=== PATIENT | female | born 1955 | race Caucasian/White ===

== ENCOUNTER → 2021-09-11 11:28 | Outpatient (CLI) | payer MEDICARE, BC, SELFPAY ==
--- NOTE | 2021-09-11 11:39 | DI.RAD.S_ITS ---
PROCEDURE: XR CHEST 2V INDICATIONS: COUGH/WHEEZING., TECHNIQUE: 2 views of the chest were acquired. COMPARISON: None. FINDINGS: Surgical changes and devices: None. Lungs and pleura: Lungs are clear. No pleural effusions or pneumothorax. Mediastinum: Mediastinal contours are normal. Heart size is normal. Bones and chest wall: No suspicious bony abnormalities. Soft tissues appear unremarkable. IMPRESSION: No source for cough identified radiographically. Dictated by: Reyes Ocampo RR Interpreted: Kenyatta Hobbs MD on 09/11/2021 at 12:06 Transcribed by: CAROL on 09/11/2021 at 12:08 Approved by: Kenyatta Hobbs M.D. on 09/11/2021 at 16:08
== END ==
PROVIDERS: PCP Physician Assistant; Referring Provider Physician Assistant; Visit Provider Physician Assistant
DX: R05.1 Acute cough (principal); R06.2 Wheezing; Z20.822 Contact with and (suspected) exposure to COVID-19
CPT/HCPCS: 71046; 87635

== ENCOUNTER → 2021-09-11 13:07 | Outpatient (ROUT) | payer MEDICARE, BC, SELFPAY ==
[2021-09-11 13:36] LABS: COVID19 -Nasal RAPID Negative (Negative)
== END ==
PROVIDERS: PCP Physician Assistant; Visit Provider Physician Assistant
DX: Z20.822 Contact with and (suspected) exposure to COVID-19 (principal)
CPT/HCPCS: 87635

== ENCOUNTER → 2022-02-20 09:48 | Outpatient (CLI) | payer MEDICARE, BC, SELFPAY ==
--- NOTE | 2022-02-20 | DI.RAD.S_ITS ---
PROCEDURE: XR HIP W PEL IF DONE LT 2V INDICATIONS: HIP PAIN LEFT TECHNIQUE: AP pelvis with lateral view(s) of the left hip(s). COMPARISON: None. FINDINGS: Bones: No acute fractures or dislocations. Pelvic ring appears intact. No suspicious bony lesions. Mild left hip joint space narrowing and spurring. Similar findings also likely present at the right hip. Soft tissues: The visualized bowel gas pattern is normal. No suspicious soft tissue calcifications. IMPRESSION: 1. Mild left hip DJD. 2. Mild right hip DJD likely also present on the single view of the right hip. Dictated by: Roger Perez M.D. on 02/20/2022 at 20:20 Approved by: Roger Perez M.D. on 02/20/2022 at 20:22
== END ==
PROVIDERS: PCP Physician Assistant; Referring Provider Physician Assistant; Visit Provider Physician Assistant
DX: M25.552 Pain in left hip (principal); M16.12 Unilateral primary osteoarthritis, left hip
CPT/HCPCS: 73502

== ENCOUNTER → 2022-02-27 16:36 | Outpatient (CLI) | payer MEDICARE, BC, SELFPAY ==
--- NOTE | 2022-02-27 | DI.MRI.S_ITS ---
PROCEDURE: MR HIP LT WO CON INDICATIONS: pain in left hip TECHNIQUE: Noncontrast coronal T1 spin echo and STIR through the bony pelvis. Coronal and axial T2 fast spin echo with fat saturation, sagittal T1 spin echo, and oblique axial T2 fast spin echo with fat saturation through the hip. COMPARISON: [facility], CR, XR HIP W PEL IF DONE LT 2V, 02/20/2022, 9:41. FINDINGS: Image quality: Partially degraded by motion artifact. Bones and joints: Mild periarticular osteophyte formation at the bilateral hip joints. Bone marrow of the pelvic ring and proximal femurs show normal signal throughout. No intraosseous lesions or fractures. No avascular necrosis of the femoral heads. The visualized lower lumbar spine appears normally aligned. Tendons and ligaments: The gluteus medius and minimus tendons appear intact, without associated muscle atrophy. Mild T2 signal elevation at the femoral origins of the bilateral gluteus medius and minimus tendons. The nearby proximal iliotibial band also appears intact. The iliopsoas tendon appears intact, without adjacent bursal fluid collections or evidence for impingement syndrome. The origin of the hamstring tendon is intact at the ischial tuberosity, as well as the associated sacrotuberous ligament. Moderate fluid surrounds the origin of the hamstring tendon at the ischial tuberosity. The straight and reflected heads of the rectus femoris muscle origin appear intact, as well as the conjoint tendon. The ligamentum teres appears intact where visualized. Labrum and cartilage: Degenerative tearing of the bilateral hip labral. Cartilage surface of the femoral head appears of normal thickness. The alpha angle of the femur is within normal limits at less than 55 degrees. Soft tissues: Visualized muscles demonstrate normal bulk and internal signal. Quadratus femoris muscle demonstrates no internal edema to suggest ischiofemoral impingement. The proximal sciatic neurovascular bundle appears normal adjacent to the hamstring tendons. No free pelvic fluid. Bladder wall thickness is normal. Genitourinary structures and bowel loops appear normal where visualized. IMPRESSION: 1. 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 2. Left ischiitis. 3. Insertional tendinitis of the bilateral gluteus medius and minimus tendons. Dictated by: Meg Oakes M.D. on 02/28/2022 at 8:42 Approved by: Meg Oakes M.D. on 02/28/2022 at 8:44
== END ==
PROVIDERS: PCP Physician Assistant; Referring Provider Physician Assistant; Visit Provider Physician Assistant
DX: M25.552 Pain in left hip (principal); M16.0 Bilateral primary osteoarthritis of hip; S73.102A Unspecified sprain of left hip, initial encounter; M76.02 Gluteal tendinitis, left hip; M76.01 Gluteal tendinitis, right hip
CPT/HCPCS: 73721

== ENCOUNTER → 2022-03-04 12:59 | Outpatient (CLI) | payer MEDICARE, BC, SELFPAY ==
--- NOTE | 2022-03-04 | DI.MRI.S_ITS ---
BREAST MRI OF BOTH BREASTS: 03/04/2022 CLINICAL: Family history of carrier of genetic disease. PROCEDURE: MR BREAST BI WO/W CON INDICATIONS: Family history of carrier of genetic disease TECHNIQUE: The patient was placed prone in a dedicated breast imaging coil. Precontrast axial STIR and 3D FLASH without fat saturation sequences were obtained. Both before and after bolus injection of contrast, sequential 1-minute axial 3D FLASH with fat saturation sequences for 3 time points, with subtraction images and maximum intensity projections (MIP's) generated. Delayed sagittal FLASH images with fat saturation were also obtained. Computer-aided detection, including computer algorithm analysis of MRI image data for lesion detection and characterization, pharmacokinetic analysis, with further physician review for interpretation, was performed. COMPARISON: None. FINDINGS: Image quality: Excellent. There is minimal background parenchymal enhancement. Right breast: The right breast demonstrates a 1.7 x 2.4 x 0.7 centimeter area of abnormal signal in the 3 o'clock position 4 cm from the nipple. This masslike area demonstrates no enhancement and on axial STIR images a blood vessel courses through the mass with no disruption. There is no post gadolinium enhancement and it follows the fibrous tissue in the breast on all sequences. Dynamic postcontrast images also shows no enhancement. No other focus, mass, or abnormal enhancement. No axillary or internal mammary chain adenopathy. Left breast: The left breast demonstrates no abnormal focus, mass, or abnormal enhancement. No axillary or internal mammary chain adenopathy. IMPRESSION: INCOMPLETE: NEEDS ADDITIONAL IMAGING EVALUATION Probable right benign fibroadenoma or other fibrous lesion. Recommend diagnostic mammogram and ultrasound of the right breast to further assess and for baseline imaging. This exam was interpreted at Station ID: [id number]. Electronically Signed By: Rolando Major acr/:03/06/2022 09:49:21 letter sent: Additional Imaging Needed ACR BI-RADS Category 0: Incomplete [id number]
== END ==
PROVIDERS: PCP Internal Medicine; Referring Provider Physician Assistant; Visit Provider Physician Assistant
DX: Z84.81 Family history of carrier of genetic disease (principal); Z12.39 Encounter for other screening for malignant neoplasm of breast; N63.15 Unspecified lump in the right breast, overlapping quadrants
CPT/HCPCS: 77049; A9579

== ENCOUNTER → 2022-04-15 09:35 | Outpatient (CLI) | payer MEDICARE, BC, SELFPAY ==
--- NOTE | 2022-04-15 09:37 | DI.MG.S_ITS ---
BILATERAL DIGITAL DIAGNOSTIC MAMMOGRAM 3D/2D SHORT-TERM FOLLOW-UP: 04/15/2022 CLINICAL: Breast MRI follow up. Comparison is made to exams dated: 03/04/2022 breast MRI - [facility], 11/22/2020 mammogram, 10/12/2020 CT - [facility], and 06/24/2016 mammogram - [facility]. There are scattered fibroglandular elements in both breasts. Focal asymmetry in the central right breast corresponding to the MRI finding. No other significant masses, calcifications, or other findings are seen in either breast. IMPRESSION: INCOMPLETE: NEEDS ADDITIONAL IMAGING EVALUATION Right breast asymmetry corresponding to the MRI abnormality, potentially a fibroadenoma or prominent fibroglandular tissue. Ultrasound recommended and has been scheduled to follow. Based on Tyrer-Cuzick model (a risk assessment model), the patient's lifetime risk is 20.5% and her 10 year risk is 10.6%. If a patient has an elevated risk, a more comprehensive evaluation should be considered and/or a referral to a genetic counselor. The [place] [employer], [employer], and NCCN Guidelines advise the consideration of Breast MRI as an adjunct to screening mammography in patients whose Lifetime risk to develop breast cancer is 20% or higher. This exam was interpreted at Station ID: [id number]. NOTE: For mammograms, a report in lay terms will be sent to the patient. Approximately 15% of breast malignancies will not be visualized mammographically. In the management of a palpable breast mass, a negative mammogram must not discourage biopsy of a clinically suspicious lesion. Electronically Signed By: Harman Montgomery M.D. jr/:04/15/2022 10:04:37 ACR BI-RADS Category 0: Incomplete [id number]
--- NOTE | 2022-04-15 09:37 | DI.US.S_ITS ---
LIMITED ULTRASOUND OF RIGHT BREAST AND AXILLA: 04/15/2022 CLINICAL: Patient returns today to evaluate a focal asymmetry in the right breast. No prior exams were available for comparison. Color flow and real-time ultrasound of the right breast 2-4 o'clock, and axilla regions were performed. Patel scale images of the real-time examination were reviewed. No suspicious abnormality seen sonographically in the right breast. Dense tissue corresponding to the MRI and mammographic finding at the 3:00 position is benign. IMPRESSION: NEGATIVE There is no sonographic evidence of malignancy. A 1 year screening mammogram is recommended. This exam was interpreted at Station ID: [id number]. Electronically Signed By: Harman Montgomery M.D. jr/:04/15/2022 10:29:13 letter sent: Normal Exam Ultrasound BI-RADS: 1 Negative
== END ==
PROVIDERS: PCP Internal Medicine; Referring Provider Internal Medicine; Visit Provider Internal Medicine
DX: R92.8 Other abnormal and inconclusive findings on diagnostic imaging of breast (principal); N64.89 Other specified disorders of breast
CPT/HCPCS: 76642; 77066; G0279

== ENCOUNTER → 2022-04-27 08:21 | Outpatient (CLI) | payer MEDICARE, BC, SELFPAY ==
[2022-04-27 08:51] LABS: Hematocrit 41.4 % (36-46); Hemoglobin 14.1 g/dL (12.0-16.0); Mean Corpuscular HGB Conc 34.1 % (30-36); Mean Corpuscular Hemoglobin 30.2 PG (26-34); Mean Corpuscular Volume 88.5 fL (80-100); Platelet Count 177 X10^3/uL (150-400); Red Blood Cell Count 4.68 X10^6/uL (4.0-5.2); White Blood Cell Count 6.8 X10^3/uL (4.5-11.0)
[2022-04-27 08:52] LABS: Appearance Urine UA CLEAR; Bilirubin Urine UA NEGATIVE (NEGATIVE); Color Urine UA YELLOW; Glucose Urine UA NEGATIVE (Negative); Ketones Urine UA NEGATIVE (NEGATIVE); Leukocyte Esterase Urine UA NEGATIVE (NEGATIVE); Nitrite Urine UA NEGATIVE (Negative); Occult Blood Urine UA 1+ (Negative); Protein Urine UA 1+ (Negative); Specific Gravity Urine UA 1.025 (1.000-1.035); Urobilinogen Urine UA 0.2 E.U./dL (0.2)
[2022-04-27 09:03] LABS: Alanine Aminotransferase 32 IU/L (<35); Albumin 3.8 g/dL (3.5-5.0); Albumin Globulin Ratio 1.3 (1.0-2.8); Alkaline Phosphatase 71 U/L (38-126); Aspartate Aminotransferase 23 IU/L (14-36); Bilirubin Total 0.6 mg/dL (0.2-1.3); Blood Urea Nitrogen 24 mg/dL (7-17); Calcium 9.2 mg/dL (8.4-10.2); Carbon Dioxide 30 mmol/L (22-32); Chloride 105 mmol/L (98-107); Cholesterol 217 mg/dL (140-199); Estimated Glomerular Filt Rate > 60 mL/min (>60); Globulin 2.9 g/dL (1.7-4.1); Glucose 118 mg/dL (80-110); HDL Cholesterol 35 mg/dL (40-60); HEMOLYSIS < 15 (0-50); LDL Cholesterol Calculated 160 mg/dL (<100); Potassium 4.2 mmol/L (3.4-5.1); Sodium 139 mmol/L (137-145); Total Protein 6.7 g/dL (6.3-8.2); Triglycerides 108 mg/dL (35-150)
[2022-04-27 09:03] LABS: Amorphous Sediment Urine 1+; Bacteria Urine Few (2-10); Culture Indicated Urine Cult Not Indicated; Mucus Urine 2+ (Negative); RBC Urine 0-1/HPF (0-5/HPF); Squamous Epithelial Cell Urine 5-10 /HPF (0-5/HPF); WBC Urine 1-5/HPF (0-5/HPF)
[2022-04-27 09:33] LABS: TSH w/ Reflex to FT4 1.47 uIU/mL (0.47-4.68)
== END ==
PROVIDERS: PCP Family Medicine; Referring Provider Internal Medicine; Visit Provider Internal Medicine
DX: R32 Unspecified urinary incontinence (principal); N95.1 Menopausal and female climacteric states; E03.9 Hypothyroidism, unspecified; E78.2 Mixed hyperlipidemia
CPT/HCPCS: 36415; 80053; 80061; 81001; 84443; 85027

== ENCOUNTER → 2022-05-14 15:46 | Outpatient (CLI) | payer MEDICARE, BC, SELFPAY ==
--- NOTE | 2022-05-14 15:50 | DI.MRI.S_ITS ---
PROCEDURE: MR LUMBAR SPINE WO CON INDICATIONS: Low back pain, lumbar DDD/DJD TECHNIQUE: Noncontrast sagittal T1 spin echo and T2 fast echo, sagittal STIR, and T2 fast spin echo through the lumbar spine. In cases with scoliosis, additional coronal T2 fast spin echo may be performed. COMPARISON: None. FINDINGS: Image quality: Excellent. Alignment and Curvature: There is 3 mm retrolisthesis of L3 on L4. There is leftward curvature of the lower thoracic spine with apex at T11-12. Bone Marrow: Marrow is of normal overall signal. No acute vertebral body compression fractures. Spinal Cord: Conus medullaris terminates at the L2 level. Visualized cord demonstrates normal signal and size. Paraspinous Soft Tissues: No paravertebral masses. Increased T2 signal is present within the left kidney suggestive of simple cyst. There is an oval T2 hyperintensity measuring 1.1 x 2.5 cm posterior to the right hemidiaphragm at the level of T12. Discs: Moderate to severe desiccation is present throughout the lumbar spine. L1-L2: Mild disc bulge without spinal stenosis. No foraminal narrowing. Facet and ligamentum flavum hypertrophy are present. L2-L3: Mild disc bulge with prominent left posterior paracentral protrusion. There is mild compromise of the left lateral recess. No foraminal narrowing. Facet and ligamentum flavum hypertrophy are present. L3-L4: Mild disc bulge with minimal spinal stenosis. Mild left foraminal narrowing with facet and ligamentum flavum hypertrophy. L4-L5: Mild disc bulge without spinal stenosis. Moderate to severe right foraminal narrowing with facet and ligamentum flavum hypertrophy. L5-S1: Mild disc bulge without spinal stenosis. Mild narrowing through the subarticular recess on the left with facet and ligamentum flavum hypertrophy. IMPRESSION: Multilevel disc bulges with prominent protrusion at L2-3. Multilevel foraminal narrowing moderate to severe at L4-5 secondary to facet/ligamentum flavum arthropathy. Limited evaluation of T2 hyperintensity posterior to the right hemidiaphragm. This may represent a cystic fluid collection of uncertain etiology. CT abdomen with contrast through this region is recommended for further evaluation. Dictated by: Kenyatta Hobbs M.D. on 05/14/2022 at 21:30 Approved by: Kenyatta Hobbs M.D. on 05/14/2022 at 21:36
== END ==
PROVIDERS: PCP Family Medicine; Referring Provider Internal Medicine; Visit Provider Internal Medicine
DX: M48.061 Spinal stenosis, lumbar region without neurogenic claudication (principal); M51.36 Other intervertebral disc degeneration, lumbar region; G89.29 Other chronic pain
CPT/HCPCS: 72148

== ENCOUNTER → 2022-05-17 15:00 | Outpatient (CLI) | payer MEDICARE, BC, SELFPAY ==
--- NOTE | 2022-05-17 15:01 | DI.ECHO.S_ITS ---
[facility] +---------+ : : [address] : [place] : : : : [id number] : : : : Phone: [phone]+ Echocardiogram Report + + :Name: DIEGO WALTON Study Date: 05/17/2022 Height: 65 in : :[facility] ReadingLocation: Weight: 212 lb : : Gender: Female BSA: 2.0 m2 : :: 1955 Age: 66 yrs BP: 151/95 mmHg: :Reason For Study: SVT : :Ordering Physician: ABAD, : :JESSICA Performed By: Phuc Fajardo : :Referring: JESSICA MELGOZA : + + Interpretation Summary The patient was in normal sinus rhythm during the exam. The left ventricle is normal in size. There is moderate concentric left ventricular hypertrophy. The left ventricle is hyperdynamic. The ejection fraction is estimated to be 70-75%. There are no focal wall motion abnormalities. Indeterminate diastolic function No prior study for comparison. Procedure: A two-dimensional transthoracic echocardiogram with color flow and Doppler was performed. The study quality was technically difficult. There is no prior echocardiogram noted for this patient. The patient was in normal sinus rhythm during the exam. Left Ventricle: The left ventricle is normal in size. There is moderate concentric left ventricular hypertrophy. The left ventricle is hyperdynamic. The ejection fraction is estimated to be 70-75%. There are no focal wall motion abnormalities. Indeterminate diastolic function. Right Ventricle: The right ventricle is normal in size and function. Atria: The left atrium grossly appears normal in size. The right atrium grossly appears normal in size. The interatrial septum grossly appears intact with no obvious evidence for an atrial septal defect. Mitral Valve: The mitral valve is normal in structure and function. There is no mitral regurgitation noted. Aortic Valve: The aortic valve is normal in structure and function. There is trace aortic regurgitation. Tricuspid Valve: The tricuspid valve is normal in structure and function. No tricuspid regurgitation. Pulmonary artery pressures cannot be estimated because of the lack of a measurable TR jet velocity. Pulmonic Valve: The pulmonic valve is not well seen, but is grossly normal. Great Vessels: The aortic root is normal size. The ascending aorta is normal in size. The IVC is of normal diameter and collapses greater than 50% with a sniff. This suggests a low right atrial pressure of 3 mm Hg. Pericardium/ Pleura There is no pericardial effusion. There is no pleural effusion. MMode/2D Measurements & Calculations LVIDd: 3.9 cm LVOT diam: 2.1 cm LVIDs: 1.7 cm Ao root diam: 3.6 cm FS: 56.4 % asc Aorta Diam: 3.7 cm IVSd: 1.4 cm LVPWd: 1.3 cm LV cruz. diameter/BSA (cm/m^2): 1.9 LV sys. diameter/BSA (cm/m^2): 0.84 LA dimension: 3.4 cm RA long axis: 5.5 cm LA A2 area: 17.3 cm2 LA A4 area: 16.4 cm2 LA length (vol): 5.5 cm LA vol: 44.1 ml LA vol index: 21.8 ml/m2 TAPSE_phl: 2.6 cm Doppler Measurements & Calculations Ao V2 max: 135.0 cm/sec LVOT Max Jakob: 128.0 cm/sec Ao V2 mean: 94.0 cm/sec LV V1 max P.6 mmHg Ao max P.0 mmHg LV V1 VTI: 23.9 cm Ao mean P.0 mmHg GIOVANNY(I,D): 3.7 cm2 Ao V2 VTI: 22.1 cm GIOVANNY(V,D): 3.3 cm2 sev ratio: 1.1 GIOVANNY indexed to BSA (cm^2/m^2): 1.8 MV E max jakob: 72.0 cm/sec SV(LVOT): 82.8 ml MV A max jakob: 79.3 cm/sec MV E/A: 0.91 Med Peak E' Jakob: 4.6 cm/sec E/E' med: 15.5 Lat Peak E' Jakob: 3.9 cm/sec E/E' lat: 18.6 E/e' average: 17.1 MV dec time: 0.21 sec AV VR_phl: 0.95 MV P1/2t-pr_phl: 61.0 msec GIOVANNY(VTI)/BSA_phl: 1.8 Reading Physician:JIMENA
== END ==
PROVIDERS: PCP Family Medicine; Referring Provider Internal Medicine; Visit Provider Internal Medicine
DX: I47.1 Supraventricular tachycardia (principal); I51.7 Cardiomegaly
CPT/HCPCS: C8929; Q9957

== ENCOUNTER → 2022-08-16 22:01 | Outpatient (CLI) | payer MEDICARE, BC, SELFPAY ==
--- NOTE | 2022-08-16 22:03 | DI.RAD.S_ITS ---
PROCEDURE: XR LUMBAR SPINE MIN 4V INDICATIONS: BACK PAIN TECHNIQUE: 5 views of the lumbar spine were acquired, including bilateral oblique views. COMPARISON: None. FINDINGS: Bones: 5 nonrib-bearing vertebrae are present. There is a mild leftward curvature of the thoracic spine centered at T11-T12. There is minimal anterolisthesis at L5-S1. No vertebral body compression fractures. No suspicious bony lesions. There is multilevel moderate degenerative disc disease throughout the lumbar spine. Moderate facet arthropathy also demonstrated in the lower lumbar spine. Soft tissues: Overlying bowel gas pattern is normal. No suspicious soft tissue calcifications. Oblique images: No pars defects. IMPRESSION: 1. No fracture or subluxation. 2. Moderate facet arthropathy in the lower lumbar spine. 3. Moderate multilevel degenerative disc disease throughout the lumbar spine. 4. Minimal anterolisthesis at L5-S1. No definite pars defects. Dictated by: Martinez Rooney M.D. on 08/17/2022 at 2:45 Approved by: Martinez Rooney M.D. on 08/17/2022 at 2:47
== END ==
PROVIDERS: PCP Family Medicine; Referring Provider Physical Medicine & Rehabilitation; Visit Provider Physical Medicine & Rehabilitation
DX: M47.816 Spondylosis without myelopathy or radiculopathy, lumbar region (principal); M51.36 Other intervertebral disc degeneration, lumbar region; M54.9 Dorsalgia, unspecified
CPT/HCPCS: 72110

== ENCOUNTER → 2022-08-19 09:16 | Outpatient (CLI) | payer MEDICARE, BC, SELFPAY ==
--- NOTE | 2022-08-19 09:21 | DI.RAD.S_ITS ---
PROCEDURE: XR THORACIC SPINE 3V INDICATIONS: Scoliosis TECHNIQUE: 3 views of the thoracic spine were acquired. COMPARISON: None. FINDINGS: Bones: No acute fracture or dislocation. There is 30.5? left convex scoliosis centered at T11. Anterior wedging is present within the midthoracic spine. Severe degenerative changes are present including large osteophytes and marked intervertebral disc space narrowing. Soft tissues: No paravertebral stripe thickening. IMPRESSION: Severe degenerative change and scoliotic deformity of the thoracic spine. Dictated by: Rand Raman M.D. on 08/19/2022 at 14:13 Approved by: Rand Raman M.D. on 08/19/2022 at 14:20
== END ==
PROVIDERS: PCP Family Medicine; Referring Provider Physical Medicine & Rehabilitation; Visit Provider Physical Medicine & Rehabilitation
DX: M47.814 Spondylosis without myelopathy or radiculopathy, thoracic region (principal); I47.1 Supraventricular tachycardia; M51.26 Other intervertebral disc displacement, lumbar region; M48.062 Spinal stenosis, lumbar region with neurogenic claudication; M41.20 Other idiopathic scoliosis, site unspecified
CPT/HCPCS: 72072; 99214

== ENCOUNTER 2022-09-12 09:05 | Outpatient (CLI) | payer MEDICARE, BC, SELFPAY ==
[2022-09-12] VITALS (8 sets, daily range): BP systolic 99–144; BP diastolic 63–86; PULSE 80–102; RESP 12–20; TEMP 36.1; O2SAT 93–100
--- NOTE | 2022-09-12 09:07 | DI.RAD.S_ITS ---
PROCEDURE: PAIN L INTERLAMINAR/CAUDAL INJ INDICATIONS: L2-3 translaminar VALERIE COMPARISON: [facility], CR, XR LUMBAR SPINE MIN 4V, 08/16/2022, 22:06. FINDINGS: Fluoroscopic spot filming was performed to verify placement of a spinal needle at the L2-L3 level, as labeled on the films. Appropriate location of the needle tip was confirmed by injection of iodinated contrast. IMPRESSION: Intraprocedural examination within normal limits. Dictated by: Mendoza Anaya M.D. on 09/12/2022 at 10:39 Approved by: Mendoza Anaya M.D. on 09/12/2022 at 10:39
[2022-09-12] MEDS: MIDAZOLAM 2 MG/2 ML VIAL IV (10:11)
[2022-09-12] MEDS: IOPAMIDOL 15 ML VIAL 3 ML INJ (10:16)
[2022-09-12] MEDS: DEXAMETHASONE 10 MG/ML VIAL 20 MG INJ (10:17)
[2022-09-12] MEDS: BETAMETHASONE 30 MG/5 ML MDV 6 MG INJ (10:17)
[2022-09-12] MEDS: BUPIVACAINE 0.25% (PF) VIAL 2 ML INJ (10:17)
--- NOTE | 2022-09-12 10:26 | PM.PROC.IR.1 ---
Date/Time/Diagnoses Date of procedure: 09/12/22 Time of procedure: 10:26 Pre-procedure diagnosis: 1. HNP WITH RADICULAR FEATURES, 2. MULTILEVEL CENTRAL STENOSIS, Post-procedure diagnosis: same Procedure Notes Procedure: 1. FLUOROSCOPICALLY GUIDED CONTRAST CONTROLLED INTERLAMINAR EPIDURAL STEROID INJECTION - L2/3 Indications: Sheyla is referred by Dr. Rueda for treatment of Bilateral Foraminal Stenosis L>R LE symptoms. Physician: José Miguel Rodriguez Total Fluoroscopy time (seconds): 15 Total sedation minutes: 15 Complications: none Procedure in detail & Post-procedure care: FINDINGS Multilevel Central Spinal Stenosis with Nerve Root Compression DESCRIPTION OF PROCEDURE Fluoroscopically guided, contrast-controlled L2/3 translaminar epidural steroid injection. Following review of allergy and review of potential side effects and complications, including, but not necessarily limited to, infection, allergic reaction, local tissue breakdown, temporary as well as permanent nerve injury, paralysis, stroke and possible , the patient indicated that the patient understood and agreed to proceed. An informed consent document was signed by the patient, witnessed by a nurse, and placed in the patient's chart. Additionally, other treatment options including modalities, medications, and physical therapy were reviewed with the patient. After review of previous anaesthesic history and IV conscious sedation the patient was deemed safe to proceed with today?s procedure with IV conscious sedation as ASA class II designation. Safety time-out was performed to confirm patient ID, procedure to be performed and site of procedure. IV sedation was accomplished with a combination of 2mg Versed administered by the RN after DO order, titrated to patient comfort during the course of the procedure while the patient remained responsive to all verbal commands. In the prone position, following sterile prep and drape of the lumbar region,the L2/3 translaminar space was identified fluoroscopically. The skin was anesthetized via a 25-gauge, 1.5-inch needle with 1% lidocaine solution. At this point, a 22-gauge short bevel spinal needle was atraumatically introduced and advanced under fluoroscopic guidance into the region of the L2/3 translaminar space. Depth was confirmed on lateral view. Radiological data, including multiple fluoroscopic views of the lumbar spine, reveal a spinal needle at the L2/3 translaminar space. Lateral views then show placement of the needle in the epidural space. Subsequent views show contrast material flowing superiorly and inferiorly in the epidural space. No vascular or intrathecal uptake is observed. At this point, using loss of resistance technique with saline and air, the epidural space was entered. This was confirmed following negative aspiration with injection of approximately 1.5 cc of Isovue 200, showing excellent epidural flow without vascular or intrathecal uptake. At this point, 1 cc of 1% lidocaine solution combined with 3cc or 20mg of dexamethasone and 6mg of betamethasone was injected without incident. The patient tolerated the procedure well without signs or symptoms of complications prior to transfer to the recovery area continued monitoring without incident. The patient was then transferred to the recovery area where they were observed for an appropriate period of time after the injection. The patient reported a VAS score of 6 prior to the procedure and a post-procedure VAS of 0. POST OP INSTRUCTIONS The patient was provided a Pain Log to continue to record their response to the target-specific procedure prior to follow-up visit with their referring physician. Additionally, specific post-injection care instructions and a contact number to our office were provided if concerns arise regarding possible complications associated with the procedure are suspected.
== END 2022-09-12 10:46 | disposition home or self-care (01) ==
PROVIDERS: PCP Family Medicine; Referring Provider Physical Medicine & Rehabilitation; Visit Provider Physical Medicine & Rehabilitation
DX: M51.16 Intervertebral disc disorders with radiculopathy, lumbar region (principal); M48.061 Spinal stenosis, lumbar region without neurogenic claudication
CPT/HCPCS: 62323; 99152; J0702; J1100; J2250; J3490

== ENCOUNTER → 2022-09-24 10:39 | Outpatient (CLI) | payer MEDICARE, BC, SELFPAY ==
[2022-09-24 12:28] LABS: Blood Urea Nitrogen 22 mg/dL (7-17); Calcium 9.4 mg/dL (8.4-10.2); Carbon Dioxide 25 mmol/L (22-32); Chloride 102 mmol/L (98-107); Estimated Glomerular Filt Rate 59 mL/min (>60); Glucose 97 mg/dL (80-110); HEMOLYSIS < 15 (0-50); Potassium 4.5 mmol/L (3.4-5.1); Sodium 135 mmol/L (137-145)
[2022-09-24 12:41] LABS: Free T3, Triiodothyronine Free 6.23 pg/mL (2.77-5.27); Free T4, Direct Thyroxine 0.91 ng/dL (0.78-2.19)
[2022-09-24 12:55] LABS: TSH w/ Reflex to FT4 0.95 uIU/mL (0.47-4.68)
== END ==
PROVIDERS: PCP Family Medicine; Referring Provider Physical Medicine & Rehabilitation; Visit Provider Physical Medicine & Rehabilitation
DX: E03.9 Hypothyroidism, unspecified (principal); I10 Essential (primary) hypertension; M54.6 Pain in thoracic spine
CPT/HCPCS: 36415; 80048; 84439; 84443; 84481

== ENCOUNTER → 2022-10-31 10:20 | Outpatient (CLI) | payer MEDICARE, BC, SELFPAY ==
[2022-10-31 11:38] LABS: Free T3, Triiodothyronine Free 6.34 pg/mL (2.77-5.27); Free T4, Direct Thyroxine 0.87 ng/dL (0.78-2.19)
[2022-10-31 11:45] LABS: Alanine Aminotransferase 24 IU/L (<35); Albumin 3.7 g/dL (3.5-5.0); Albumin Globulin Ratio 1.4 (1.0-2.8); Alkaline Phosphatase 64 U/L (38-126); Aspartate Aminotransferase 22 IU/L (14-36); BUN Creatinine Ratio 24.5 (6-22); Bilirubin Total 0.8 mg/dL (0.2-1.3); Blood Urea Nitrogen 26 mg/dL (7-17); Calcium 9.5 mg/dL (8.4-10.2); Carbon Dioxide 28 mmol/L (22-32); Chloride 103 mmol/L (98-107); Estimated Glomerular Filt Rate 58 mL/min (>60); Globulin 2.6 g/dL (1.7-4.1); Glucose 98 mg/dL (80-110); HEMOLYSIS < 15 (0-50); Potassium 4.3 mmol/L (3.4-5.1); Sodium 138 mmol/L (137-145); Total Protein 6.3 g/dL (6.3-8.2)
[2022-10-31 11:52] LABS: Thyroid Stimulating Hormone 0.205 uIU/mL (0.47-4.68)
[2022-10-31 12:04] LABS: Creatinine Urine Random 116.1 mg/dL
[2022-10-31 12:06] LABS: Protein (Total) Urine Random < 5 mg/dL (0-12); Protein Creatinine Ratio Urine 0.04 GRAM/24H
== END ==
PROVIDERS: PCP Family Medicine; Referring Provider Family Medicine; Visit Provider Family Medicine
DX: E03.9 Hypothyroidism, unspecified (principal); E78.2 Mixed hyperlipidemia; I10 Essential (primary) hypertension; M51.26 Other intervertebral disc displacement, lumbar region; M48.062 Spinal stenosis, lumbar region with neurogenic claudication; M41.20 Other idiopathic scoliosis, site unspecified; M15.9 Polyosteoarthritis, unspecified
CPT/HCPCS: 36415; 80053; 82570; 84156; 84439; 84443; 84481; 99215

== ENCOUNTER 2022-11-05 07:19 | Outpatient (CLI) | payer MEDICARE, BC, SELFPAY ==
[2022-11-05] VITALS (9 sets, daily range): BP systolic 126–156; BP diastolic 63–85; PULSE 88–93; RESP 16–22; TEMP 36.2; O2SAT 91–98
--- NOTE | 2022-11-05 07:23 | DI.RAD.S_ITS ---
PROCEDURE: PAIN L/S TRANSFORAM INJECT DORIAN COMPARISON: None. INDICATIONS: SPONDYLOSIS FINDINGS: 6 intraoperative fluoroscopic images of lumbar spine shows spinal needle placed bilaterally at L2-3 level. IMPRESSION: Fluoro guidance was provided intraoperatively for bilateral L2-3 transforaminal steroid injection performed by the ordering physician. Dictated by: Vamsi Mendoza M.D. on 11/05/2022 at 8:54 Approved by: Vamsi Mendoza M.D. on 11/05/2022 at 8:56
[2022-11-05] MEDS: MIDAZOLAM 2 MG/2 ML VIAL IV (08:16)
[2022-11-05] MEDS: BUPIVACAINE 0.25% (PF) VIAL 2 ML INJ (08:21)
[2022-11-05] MEDS: IOPAMIDOL 15 ML VIAL 3 ML INJ (08:21)
[2022-11-05] MEDS: DEXAMETHASONE 10 MG/ML VIAL 20 MG INJ (08:21)
[2022-11-05] MEDS: BETAMETHASONE 30 MG/5 ML MDV 12 MG INJ (08:22)
--- NOTE | 2022-11-05 08:39 | PM.PROC.IR.1 ---
Date/Time/Diagnoses Date of procedure: 11/05/22 Time of procedure: 08:39 Pre-procedure diagnosis: 1. FORAMINAL STENOSIS WITH LE SYMPTOMS Post-procedure diagnosis: same Procedure Notes Procedure: 1. FLUOROSCOPICALLY GUIDED CONTRAST CONTROLLED TRANSFORAMINAL EPIDURAL STEROID INJECTION - BILATERAL L2/3 TFESI Indications: Sheyla is referred by Dr. Rueda for treatment of Foraminal Stenosis with bilateral LE Symptoms Physician: José Miguel Rodriguez Total Fluoroscopy time (seconds): 19 Total sedation minutes: 17 Complications: none Procedure in detail & Post-procedure care: FINDINGS Foraminal Nerve Root Compression secondary to disc disease and facet hypertrophy DESCRIPTION OF PROCEDURE Following review of allergy and review of potential side effects and complications, including, but not necessarily limited to, infection, allergic reaction, local tissue breakdown, stroke, temporary or permanent nerve injury, paralysis, and possible , the patient indicated that the patient understood and agreed to proceed. An informed consent document was signed by the patient, witnessed by a nurse, and placed in the patient's chart. Additionally, other treatment options including medications, modalities, and physical therapy were reviewed with the patient. After review of previous anaesthesic history and IV conscious sedation the patient was deemed safe to proceed with today?s procedure with IV conscious sedation as ASA class II designation. Safety time-out was performed to confirm patient ID, procedure to be performed and site of procedure. IV sedation was accomplished with a combination of 2mg of Versed was administered by the RN after DO order, titrated to patient comfort during the course of the procedure while the patient remained responsive to all verbal commands In the prone position following sterile prep and drape of the lumbar region, the right L3/4 posterior neuroforamen was identified fluoroscopically. The skin was anesthetized via a 25-gauge 1.5-inch needle with 1% lidocaine solution. At this point, a 25-gauge 3.5-inch spinal needle was atraumatically introduced and advanced under fluoroscopic guidance through the posterior right L3/4 neuroforamen to approximately the anterior aspect of the canal. Depth was confirmed on lateral view. Following negative aspiration, injection of approximately 1.5cc of Isovue 200 under live fluoroscopy in the AP view confirmed excellent flow along the nerve root, into the epidural space without vascular or intrathecal uptake observed Radiological data, including multiple fluoroscopic views of the lumbosacral spine, reveal a spinal needle at the right L3/4 posterior neuroforamen. Subsequent views show flow of contrast material flowing superiorly and inferiorly along the nerve root confirming epidural flow. Subsequently, a test dose of 1.5cc of 1% lidocaine solution was administered and patient was observed for two minutes for signs or symptoms of complications, including abdominal pain, shortness of breath, bilateral upper or lower extremity weakness, nausea and vomiting, prior to steroid injection. At this point, a total of 3cc or 20mg of dexamethasone and 6mg betamethasone was injected without incident. Attention was then refocused to the left L3/4 level where the identical procedure was replicated. The procedure tolerated the procedure well without signs or symptoms of complications prior to transfer to the recovery area continued monitoring without incident. The patient was then transferred to the recovery area where they were observed for an appropriate time after the injection. The patient reported a VAS score of 7 prior to the procedure and a post-procedure VAS of 0. POST OP INSTRUCTIONS The patient was provided a Pain Log to continue to record their response to the target-specific procedure prior to follow-up visit with their referring physician. Additionally, specific post-injection care instructions and a contact number to our office were provided if concerns arise regarding possible complications associated with the procedure are suspected.
== END 2022-11-05 08:49 | disposition home or self-care (01) ==
LOC: RAD 07:21
PROVIDERS: PCP Family Medicine; Referring Provider Physical Medicine & Rehabilitation; Visit Provider Physical Medicine & Rehabilitation
DX: M48.062 Spinal stenosis, lumbar region with neurogenic claudication (principal); M51.16 Intervertebral disc disorders with radiculopathy, lumbar region
CPT/HCPCS: 64483; 99152; J0702; J1100; J2250; J3490

== ENCOUNTER → 2022-12-10 10:08 | Outpatient (CLI) | payer MEDICARE, BC, SELFPAY ==
[2022-12-10 10:30] LABS: BUN Creatinine Ratio 21.7 (6-22); Blood Urea Nitrogen 23 mg/dL (7-17); Calcium 9.2 mg/dL (8.4-10.2); Carbon Dioxide 26 mmol/L (22-32); Chloride 105 mmol/L (98-107); Estimated Glomerular Filt Rate 58 mL/min (>60); Glucose 109 mg/dL (80-110); HEMOLYSIS < 15 (0-50); Potassium 4.1 mmol/L (3.4-5.1); Sodium 139 mmol/L (137-145)
== END ==
PROVIDERS: PCP Family Medicine; Referring Provider Family Medicine; Visit Provider Family Medicine
DX: R06.02 Shortness of breath (principal); E78.2 Mixed hyperlipidemia; I10 Essential (primary) hypertension
CPT/HCPCS: 36415; 80048

== ENCOUNTER → 2022-12-10 10:16 | Outpatient (CLI) | payer MEDICARE, BC, SELFPAY ==
--- NOTE | 2022-12-10 10:17 | DI.US.S_ITS ---
PROCEDURE: US PERIPH VENOUS LOW EXTREM LT INDICATIONS: LEFT LEG PAIN/SWELLING TECHNIQUE: Real-time imaging, as well as color and pulse Doppler interrogation, were performed of the lower extremity deep veins from the inguinal ligament to the popliteal fossa. COMPARISON: None. FINDINGS: The common femoral, femoral and popliteal veins are normally compressible, and free of intraluminal thrombus. Color and pulse Doppler demonstrate normal phasic intraluminal flow. There is normal augmentation response to distal compression maneuver. IMPRESSION: Negative for DVT Dictated by: Randolph Ospina M.D. on 12/10/2022 at 10:49 Approved by: Randolph Ospina M.D. on 12/10/2022 at 10:50
--- NOTE | 2022-12-10 10:17 | DI.CT.S_ITS ---
PROCEDURE: CT ANGIO CHEST PE PROTOCOL INDICATIONS: SOB TECHNIQUE: After the administration of intravenous contrast, 2 mm thick sections acquired from the pulmonary apices to the posterior costophrenic angles. 3-dimensional maximum intensity projection (MIP) coronal and sagittal reformats were then acquired through the thorax. For radiation dose reduction, the following was used: automated exposure control, adjustment of mA and/or kV according to patient size. COMPARISON: [facility], MR, MR BREAST BI WO/W CON, 03/04/2022, 13:13. FINDINGS: Image quality: Excellent. Pulmonary arteries: Segmental and subsegmental pulmonary emboli bilaterally. Moderate embolic burden. RV to LV ratio 0.78. Lungs and pleura: Bilateral patchy ground-glass opacity, left greater than right. No pleural effusions or pneumothorax. Central and peripheral airways are patent. Mediastinum: Heart size is normal, without pericardial effusion. No mediastinal or hilar adenopathy. Thoracic aorta is normal in caliber and enhancement. Esophagus is normal in caliber, without hiatal hernia. Bones and chest wall: No suspicious bony lesions. Ribs and thoracic spine appear intact throughout. Thyroid gland is unremarkable. Density in the right medial breast, (4/61), appears unchanged compared to prior MRI. No axillary or supraclavicular adenopathy. Abdomen: Visualized upper abdominal solid organs appear normal in the early arterial phase of enhancement. IMPRESSION: 1. Bilateral segmental and subsegmental pulmonary emboli. Moderate embolic burden. No right heart strain demonstrated. 2. Bilateral ground-glass opacity. Favor atelectasis. Comment: Findings were discussed with Malka on behalf of Dr. Rueda at time of dictation. Dictated by: Rajat Bertrand M.D. on 12/10/2022 at 12:19 Approved by: Rajat Bertrand M.D. on 12/10/2022 at 12:33
== END ==
PROVIDERS: PCP Family Medicine; Referring Provider Family Medicine; Visit Provider Family Medicine
DX: R06.02 Shortness of breath (principal); M79.605 Pain in left leg; E78.2 Mixed hyperlipidemia; I10 Essential (primary) hypertension
CPT/HCPCS: 36415; 71275; 80048; 93971; Q9967

== ENCOUNTER → 2022-12-25 06:52 | Outpatient (CLI) | payer MEDICARE, BC, SELFPAY ==
--- NOTE | 2022-12-25 07:20 | DI.ECHO.S_ITS ---
[place] [facility]---------+ [facility] +---------+ : : [address] : : : : [id number] : : : : Phone: [phone]---------+ Echocardiogram Report + + :Name: DIEGO WALTON Study Date: 12/25/2022 Height: 65 in : :[facility] ReadingLocation: Weight: 220 lb: : Gender: Female BSA: 2.1 m2 : :: 1955 Age: 67 yrs BP: 95/67 mmHg: :Reason For Study: SHORTNESS OF BREATH WITH EXERTION : :Ordering Physician: NARESH YAÑEZ Performed By: Cassy Adams : :Referring: NARESH YAÑEZ : + + Interpretation Summary Left ventricular ejection fraction is estimated to be 60 +/- 5%. There is no significant valvular heart disease. Procedure: A two-dimensional transthoracic echocardiogram with color flow and Doppler was performed. The study quality was technically adequate. Comparison is made with the echocardiogram of 05/17/2022. The patient was in sinus rhythm with heart rates between 64-84 bpm during the exam. Left Ventricle: The left ventricle is normal in size. Left ventricular wall thickness is mild-moderately increased. Left ventricular ejection fraction is estimated to be 60 +/- 5%. Left ventricular wall motion is normal. Right Ventricle: The right ventricle is normal in size and function. Atria: The left atrial size is normal. Right atrial size is normal. There is no Doppler evidence for an interatrial shunt. Mitral Valve: The mitral valve is normal in structure and function. There is no mitral regurgitation noted. Aortic Valve: The aortic valve is normal in structure and function. There is no aortic valve stenosis. There is trace aortic regurgitation. Tricuspid Valve: The tricuspid valve is normal in structure and function. There is trace tricuspid regurgitation. Pulmonary artery pressures cannot be estimated because of the lack of a measurable TR jet velocity. Pulmonic Valve: The pulmonic valve leaflets are thin and pliable; valve motion is normal. There is mild pulmonic regurgitation. Great Vessels: The aortic root is normal size. The ascending aorta is at the upper limits of normal in size. The IVC is dilated (diameter is greater than 2.1 cm) yet it collapses greater than 50% with a sniff. This suggests a right atrial pressure of 8 mm Hg. Pericardium/ Pleura There is no pericardial effusion. There is no pleural effusion. MMode/2D Measurements & Calculations LVIDd: 4.9 cm LVOT diam: 2.0 cm LVIDs: 2.8 cm Ao root diam: 3.8 cm FS: 42.9 % asc Aorta Diam: 3.8 cm EPSS: 0.42 cm Ao Arch Diam (Prox Trans): 3.0 cm IVSd: 1.3 cm LVPWd: 0.97 cm LV cruz. diameter/BSA (cm/m^2): 2.4 LV sys. diameter/BSA (cm/m^2): 1.4 LA A2 area: 17.1 cm2 RA long axis: 4.8 cm LA A4 area: 15.9 cm2 RA area: 13.1 cm2 LA length (vol): 4.7 cm RA vol: 30.4 ml LA vol: 48.9 ml RA : 14.8 ml/m2 LA vol index: 23.7 ml/m2 IVC diam: 2.1 cm RVD1 (basal): 2.7 cm RVD2 (mid): 2.3 cm TAPSE: 1.8 cm Doppler Measurements & Calculations Ao V2 max: 139.7 cm/sec LVOT Max Jakob: 104.3 cm/sec Ao V2 mean: 97.6 cm/sec LV V1 max P.4 mmHg Ao max P.8 mmHg LV V1 VTI: 20.8 cm Ao mean P.3 mmHg GIOVANNY(I,D): 2.7 cm2 Ao V2 VTI: 24.7 cm GIOVANNY(V,D): 2.4 cm2 sev ratio: 0.84 GIOVANNY indexed to BSA (cm^2/m^2): 1.3 MV E max jakob: 48.7 cm/sec PA V2 max: 93.0 cm/sec MV A max jakob: 50.1 cm/sec PA V2 mean: 64.2 cm/sec MV E/A: 0.97 PA mean P.8 mmHg Med Peak E' Jakob: 5.5 cm/sec PA pr(Accel): 37.9 mmHg E/E' med: 8.8 Lat Peak E' Jakob: 5.0 cm/sec E/E' lat: 9.7 E/e' average: 9.3 MV dec time: 0.27 sec SV(LVOT): 66.8 ml Reading Physician:10:04 AM
== END ==
PROVIDERS: PCP Family Medicine; Referring Provider Family Medicine; Visit Provider Family Medicine
DX: R06.02 Shortness of breath (principal); I37.1 Nonrheumatic pulmonary valve insufficiency
CPT/HCPCS: 93306

== ENCOUNTER → 2023-01-09 16:32 | Outpatient (CLI) | payer MEDICARE, BC, SELFPAY ==
--- NOTE | 2023-01-09 16:34 | DI.US.S_ITS ---
PROCEDURE: US [facility] VENOUS LOW EXTREM LT INDICATIONS: SWELLING TECHNIQUE: Real-time imaging, as well as color and pulse Doppler interrogation, were performed of the lower extremity deep veins from the inguinal ligament to the popliteal fossa. COMPARISON: [facility], , [facility] VENOUS LOW EXTREM LT, 12/10/2022, 10:28. FINDINGS: The common femoral, femoral and popliteal veins are normally compressible, and free of intraluminal thrombus. Color and pulse Doppler demonstrate normal phasic intraluminal flow. There is normal augmentation response to distal compression maneuver. Multiple prominent lymph nodes can be seen involving the left groin, with the largest measuring 3.1 x 0.7 x 3.7 cm. IMPRESSION: Negative for deep venous thrombosis. Prominent left groin lymph nodes can be seen. Dictated by: Mendoza Anaya M.D. on 01/09/2023 at 16:08 Approved by: Mendoza Anaya M.D. on 01/09/2023 at 16:09
[2023-01-09 18:29] LABS: Creatinine Urine Random 103.4 mg/dL
[2023-01-09 18:33] LABS: Microalbumi Creatinin Ratio Ur 8.7 ug/mg CR (<30); Microalbumin Urine Random 0.9 mg/dL (0-1.6)
== END ==
PROVIDERS: PCP Family Medicine; Referring Provider Nurse Practitioner Family; Visit Provider Nurse Practitioner Family
DX: M79.89 Other specified soft tissue disorders (principal); R59.0 Localized enlarged lymph nodes; I10 Essential (primary) hypertension
CPT/HCPCS: 82043; 82570; 93971

== ENCOUNTER → 2023-01-14 16:53 | Outpatient (CLI) | payer MEDICARE, BC, SELFPAY ==
--- NOTE | 2023-01-14 16:56 | DI.MRI.S_ITS ---
PROCEDURE: MR LUMBAR SPINE WO CON INDICATIONS: numbness left leg TECHNIQUE: Noncontrast sagittal T1 spin echo and T2 fast echo, sagittal STIR, and T2 fast spin echo through the lumbar spine. In cases with scoliosis, additional coronal T2 fast spin echo may be performed. COMPARISON: [facility], MR, MR LUMBAR SPINE WO CON, 05/14/2022, 16:00. FINDINGS: Image quality: Excellent. Alignment and Curvature: There is loss of the expected lumbar lordosis, as before. Bone Marrow: Multilevel reactive endplate changes are redemonstrated. Spinal Cord: Conus medullaris terminates at the L1 level. Visualized cord demonstrates normal signal and size. Paraspinous Soft Tissues: No paravertebral masses. T12-L1: Severe disc desiccation and height loss. Mild facet ligamentum flavum hypertrophy. Broad-based disc bulge. Mild bilateral neural foraminal stenosis. These findings are unchanged from the study dated May 14, 2022. L1-L2: Severe disc desiccation and height loss. Broad-based disc bulge. Mild facet ligamentum flavum hypertrophy. Mild bilateral neural foraminal stenosis. These findings are unchanged. L2-L3: Severe disc desiccation and height loss. There is a left paracentral 0.9 x 0.5 x 1.2 cm disc protrusion which narrows the left lateral recess and results in moderate canal stenosis. The size of the disc protrusion is slightly increased in extent when compared with the study dated May 14, 2022. No significant foraminal stenosis. L3-L4: Severe disc desiccation and height loss. Mild facet ligamentum flavum hypertrophy. No canal stenosis. Mild bilateral foraminal stenosis. Findings are unchanged. L4-L5: Severe disc desiccation and height loss. Broad-based disc bulge. No canal stenosis. Moderate right foraminal stenosis unchanged from the prior study. L5-S1: Mild disc desiccation and height loss. Moderate facet sclerosis. No canal stenosis. Mild right and moderate left neural foraminal stenosis. Findings are unchanged when compared with the prior study IMPRESSION: 1. Slight increase in the size of the left paracentral L2-3 disc protrusion when compared with the study dated May 14, 2022. This results in narrowing of the left lateral recess at this level. 2. No other interval change when compared with the prior study. Dictated by: Rand Raman M.D. on 01/15/2023 at 9:11 Approved by: Rand Raman M.D. on 01/15/2023 at 9:54
== END ==
PROVIDERS: PCP Family Medicine; Referring Provider Nurse Practitioner Family; Visit Provider Nurse Practitioner Family
DX: M51.26 Other intervertebral disc displacement, lumbar region (principal); M48.062 Spinal stenosis, lumbar region with neurogenic claudication; R93.89 Abnormal findings on diagnostic imaging of other specified body structures
CPT/HCPCS: 72148

== ENCOUNTER → 2023-01-15 07:09 | Outpatient (CLI) | payer MEDICARE, BC, SELFPAY ==
[2023-01-15 08:06] LABS: Add Manual Diff / Slide Review NO; Basophils Absolute Auto 0 /uL (0-100); Basophils Percent Auto 0.6 % (0-2); Eosinophils Absolute Auto 100 /uL (0-450); Eosinophils Percent Auto 2.1 % (2-4); Hematocrit 40.4 % (36-46); Hemoglobin 13.8 g/dL (12.0-16.0); Lymphocytes Absolute Auto 1800 /uL (1100-4500); Lymphocytes Percent Auto 26.8 % (25-40); Mean Corpuscular HGB Conc 34.1 % (30-36); Mean Corpuscular Hemoglobin 29.7 PG (26-34); Mean Corpuscular Volume 87.1 fL (80-100); Monocytes Absolute Auto 400 /uL (0-900); Monocytes Percent Auto 5.9 % (3-14); Neutrophils Absolute Auto 4400 /uL (1500-7000); Neutrophils Percent Auto 64.6 % (50-75); Platelet Count 167 X10^3/uL (150-400); Red Blood Cell Count 4.64 X10^6/uL (4.0-5.2); Red Cell Distribution Width 13.6 % (11.6-14.8); White Blood Cell Count 6.9 X10^3/uL (4.5-11.0)
[2023-01-15 10:05] LABS: BUN Creatinine Ratio 18.3 (6-22); Blood Urea Nitrogen 19 mg/dL (7-17); Calcium 9.3 mg/dL (8.4-10.2); Carbon Dioxide 30 mmol/L (22-32); Chloride 102 mmol/L (98-107); Cholesterol 180 mg/dL (140-199); Estimated Glomerular Filt Rate 59 mL/min (>60); Glucose 131 mg/dL (80-110); HDL Cholesterol 29 mg/dL (40-60); HEMOLYSIS < 15 (0-50); LDL Cholesterol Calculated 117 mg/dL (<100); Potassium 4.5 mmol/L (3.4-5.1); Sodium 139 mmol/L (137-145); Triglycerides 169 mg/dL (35-150)
[2023-01-15 10:08] LABS: Free T3, Triiodothyronine Free 6.24 pg/mL (2.77-5.27); Free T4, Direct Thyroxine 0.95 ng/dL (0.78-2.19)
[2023-01-15 10:21] LABS: Thyroid Stimulating Hormone 0.307 uIU/mL (0.47-4.68)
[2023-01-16 14:58] LABS: x Labcorp Estim. Avg Glu (eAG) 128 mg/dL (.); x Labcorp Hemoglobin A1c 6.1 % (4.8-5.6)
== END ==
PROVIDERS: PCP Family Medicine; Referring Provider Family Medicine; Visit Provider Family Medicine
DX: E03.9 Hypothyroidism, unspecified (principal); E78.2 Mixed hyperlipidemia; I10 Essential (primary) hypertension; I26.99 Other pulmonary embolism without acute cor pulmonale
CPT/HCPCS: 36415; 80048; 80061; 83036; 84439; 84443; 84481; 85025

== ENCOUNTER → 2023-01-30 15:28 | Outpatient (CLI) | payer MEDICARE, BC, SELFPAY ==
--- NOTE | 2023-01-30 15:29 | DI.US.S_ITS ---
PROCEDURE: US SOFT TISSUE HEAD AND NECK INDICATIONS: LYMPHADENOPATHY TECHNIQUE: Real-time scanning was performed of the neck region of interest, with image documentation. COMPARISON: None. FINDINGS: Small areas of echogenicity are identified the area palpable concern appearing most suggestive of subcentimeter lymph nodes the largest measuring 5 mm in short axis. IMPRESSION: Normal appearing lymph nodes. Dictated by: Kenyatta Hobbs M.D. on 01/30/2023 at 17:18 Approved by: Kenyatta Hobbs M.D. on 01/30/2023 at 17:18
== END ==
PROVIDERS: PCP Family Medicine; Referring Provider Family Medicine; Visit Provider Family Medicine
DX: R59.1 Generalized enlarged lymph nodes (principal)
CPT/HCPCS: 76536

== ENCOUNTER 2023-02-20 14:56 | Outpatient (CLI) | payer MEDICARE, BC, SELFPAY ==
[2023-02-20] VITALS (9 sets, daily range): BP systolic 119–165; BP diastolic 57–79; PULSE 83–90; RESP 10–20; TEMP 36.5; O2SAT 92–98
--- NOTE | 2023-02-20 14:59 | DI.RAD.S_ITS ---
PROCEDURE: PAIN L/S FACET INJ/BLK 1ST DORIAN COMPARISON: [facility], MR, MR LUMBAR SPINE WO CON, 01/14/2023, 17:07. INDICATIONS: SPONDYLOSIS FINDINGS: 6 intraoperative fluoroscopy images were obtained, demonstrating bilateral L4-L5 and L5-S1 facet joint injection. IMPRESSION: Fluoroscopy for pain management. Dictated by: Bob Gallagher M.D. on 02/20/2023 at 16:46 Approved by: Bob Gallagher M.D. on 02/20/2023 at 16:49
[2023-02-20] MEDS: MIDAZOLAM 2 MG/2 ML VIAL IV (16:05)
[2023-02-20] MEDS: BETAMETHASONE 30 MG/5 ML MDV 12 MG INJ (16:08)
[2023-02-20] MEDS: BUPIVACAINE 0.5% (PF) 10 ML VIAL 5 ML INJ (16:09)
[2023-02-20] MEDS: LIDOCAINE 1% 20 ML 5 ML INJ (16:09)
[2023-02-20] MEDS: IOPAMIDOL 15 ML VIAL 3 ML INJ (16:09)
--- NOTE | 2023-02-20 16:26 | P.PCN_ITS ---
Date/Time/Diagnoses Date of procedure: 02/20/23 Time of procedure: 16:26 Pre-procedure diagnosis: 1. FACET ARTHROPATHY 2. AXIAL LBP 3. MULTILEVEL DDD Post-procedure diagnosis: same Procedure Notes Procedure: 1. FLUOROSCOPICALLY GUIDED CONTRAST CONTROLLED FACET JOINT INJECTIONS BILATERAL L4/5, L5/S1 Indications: Sheyla is referred by Dr. Rueda for treatment of Axial LBP Physician: José Miguel Rodriguez Total Fluoroscopy time (seconds): 13 Total sedation minutes: 13 Complications: none Procedure in detail & Post-procedure care: FINDINGS Multilevel Facet Arthropathy with Clinically significant axial LBP DESCRIPTION OF PROCEDURE Fluoroscopically guided, contrast-controlled bilateral L4/5, L5/S1 facet joint injections. Following review of allergy and review of potential side effects and complications, including, but not necessarily limited to, infection, allergic reaction, local tissue breakdown, stroke, temporary or permanent nerve injury, paralysis, and possible , the patient indicated that the patient understood and agreed to proceed. An informed consent document was signed by the patient, witnessed by a nurse, and placed in the patient's chart. Additionally, other treatment options including medications, modalities, and physical therapy were reviewed with the patient. After review of previous anaesthesic history and IV conscious sedation the patient was deemed safe to proceed with today?s procedure with IV conscious sedation as ASA class II designation. Safety time-out was performed to confirm patient ID, procedure to be performed and site of procedure. IV sedation was accomplished with a combination of 2mg of Versed was administered by the RN after DO order, titrated to patient comfort during the course of the procedure while the patient remained responsive to all verbal commands In the prone position, following sterile prep and drape of the lumbar region, the posterior aspect of the L4/5, L5/S1 facet joints were identified fluoroscopically. The skin was anesthetized via a 25-gauge 1.5inch needle with 1% lidocaine solution into the corresponding facet joints. At this point, a 22- gauge 3.5-inch spinal needle was atraumatically introduced and advanced under fluoroscopic guidance into the corresponding facet joints. Following negative aspiration, injections of approximately 0.2cc of Isovue 200 confirmed interarticular placement without vascular uptake. The identical procedure was then performed at the L4/5, L5/S1 facet joints on the left. Radiological data, including multiple fluoroscopic views of the lumbosacral spine, reveal a spinal needle at the L4/5, L5/S1 facet joints bilaterally. Subsequent views show flow of contrast material both superiorly and inferiorly within the joint space without vascular or intrathecal uptake. At this point, a total of 0.5cc including a mixture of 0.25cc Marcaine and 0.25cc betamethasone was injected without complication into each of the corresponding facet joints. The patient tolerated the procedure well without signs or symptoms of complications prior to transfer to the recovery area continued monitoring without incident. The patient was then transferred to the recovery area where they were observed for an appropriate period of time after the injection. The patient reported a VAS score of 7 prior to the procedure and a post- procedure VAS of 0. POST OP INSTRUCTIONS The patient was provided a Pain Log to continue to record their response to the target-specific procedure prior to follow-up visit with their referring physician. Additionally, specific post-injection care instructions and a contact number to our office were provided if concerns arise regarding possible complications associated with the procedure are suspected.
== END 2023-02-20 16:40 | disposition home or self-care (01) ==
PROVIDERS: PCP Family Medicine; Referring Provider Physical Medicine & Rehabilitation; Visit Provider Physical Medicine & Rehabilitation
DX: M47.816 Spondylosis without myelopathy or radiculopathy, lumbar region (principal); M47.817 Spondylosis without myelopathy or radiculopathy, lumbosacral region; M51.36 Other intervertebral disc degeneration, lumbar region; M51.37 Other intervertebral disc degeneration, lumbosacral region
CPT/HCPCS: 64493; 64494; 99152; J0702; J2250

== ENCOUNTER → 2023-03-12 12:23 | Outpatient (CLI) | payer MEDICARE, BC, SELFPAY ==
[2023-03-12 13:53] LABS: Free T3, Triiodothyronine Free 6.87 pg/mL (2.77-5.27); Free T4, Direct Thyroxine 0.94 ng/dL (0.78-2.19)
[2023-03-12 14:07] LABS: Thyroid Stimulating Hormone 0.375 uIU/mL (0.47-4.68)
[2023-03-16 09:44] LABS: Antithrombin Activity 146 % (75-135); Antithrombin Antigen 88 % (72-124); Protein C-Functional 123 % (73-180); Protein S-Functional 178 % (63-140)
== END ==
PROVIDERS: PCP Family Medicine; Referring Provider Internal Medicine Cardiovascular Disease; Visit Provider Internal Medicine Cardiovascular Disease
DX: I10 Essential (primary) hypertension (principal); I27.82 Chronic pulmonary embolism; E03.9 Hypothyroidism, unspecified
CPT/HCPCS: 36415; 81240; 81241; 84439; 84443; 84481; 85300; 85301; 85303; 85306

== ENCOUNTER → 2023-04-16 08:13 | Outpatient (CLI) | payer MEDICARE, BC, SELFPAY ==
--- NOTE | 2023-04-16 08:16 | DI.ECHO.S_ITS ---
[place] [facility]---------+ [facility] +---------+ : : [address] : [address] : : : : [phone] : : : : Phone: [phone]---------+ Echocardiogram Report + + :Name: DIEGO WALTON Study Date: 04/16/2023 Height: 65 in : :[facility] ReadingLocation: Weight: 225 lb : : Gender: Female BSA: 2.1 m2 : :: 1955 Age: 67 yrs BP: 129/89 mmHg: :Reason For Study: CHRONIC PULMONARY EMBOLISM : :Ordering Physician: RON, : :MARY Performed By: Cassy Adams : :Referring: MARY VELASQUEZ : + + Interpretation Summary The study quality was technically difficult. There is moderate concentric left ventricular hypertrophy. The ejection fraction is estimated to be 55-60%. Grade I diastolic dysfunction. The right ventricle is mildly dilated. Right ventricular systolic function is mildly reduced. There is trace aortic regurgitation. Pulmonary artery pressures cannot be estimated because of the lack of a measurable TR jet velocity. The ascending aorta is mildly enlarged, 3.8 cm. Procedure: A two-dimensional transthoracic echocardiogram with color flow and Doppler was performed. The study quality was technically difficult. Comparison is made with the echocardiogram of 12/25/2022. A contrast injection of Definity was performed to improve assessment of LV function. The patient was in sinus rhythm with heart rates between 68-103 bpm during the exam. Left Ventricle: The left ventricle is normal in size. There is moderate concentric left ventricular hypertrophy. The ejection fraction is estimated to be 55-60%. Diastolic parameters suggest a relaxation abnormality of the left ventricle, consistent with probable normal filling pressures. Right Ventricle: The right ventricle is mildly dilated. Right ventricular systolic function is mildly reduced. Atria: The left atrial size is normal. Right atrial size is normal. There is no Doppler evidence for an interatrial shunt. Mitral Valve: The mitral valve is normal in structure and function. There is no mitral regurgitation noted. Aortic Valve: The aortic valve is not well visualized. The aortic valve opens well. There is no aortic valve stenosis. There is trace aortic regurgitation. Tricuspid Valve: The tricuspid valve is not well visualized, but is grossly normal. No tricuspid regurgitation. Pulmonary artery pressures cannot be estimated because of the lack of a measurable TR jet velocity. Pulmonic Valve: The pulmonic valve is not well seen, but is grossly normal. There is no pulmonic valvular regurgitation. Great Vessels: The aortic root is normal size. The ascending aorta is mildly enlarged. The IVC is of normal diameter and collapses greater than 50% with a sniff. This suggests a low right atrial pressure of 3 mm Hg. Pericardium/ Pleura There is no pericardial effusion. There is no pleural effusion. MMode/2D Measurements & Calculations LVIDd: 3.9 cm LVOT diam: 1.9 cm LVIDs: 2.7 cm Ao root diam: 3.5 cm FS: 31.4 % asc Aorta Diam: 3.8 cm IVSd: 1.3 cm Ao Arch Diam (Prox Trans): 2.9 cm LVPWd: 1.4 cm LV cruz. diameter/BSA (cm/m^2): 1.9 LV sys. diameter/BSA (cm/m^2): 1.3 LA A2 area: 16.0 cm2 RA long axis: 4.9 cm LA A4 area: 17.2 cm2 RA area: 11.9 cm2 LA length (vol): 4.8 cm RA vol: 24.3 ml LA vol: 48.2 ml RA : 11.7 ml/m2 LA vol index: 23.2 ml/m2 IVC diam: 1.8 cm RVD1 (basal): 2.6 cm RVD2 (mid): 2.0 cm TAPSE: 2.2 cm Doppler Measurements & Calculations Ao V2 max: 138.3 cm/sec LVOT Max Jakob: 107.7 cm/sec Ao V2 mean: 102.2 cm/sec LV V1 max P.6 mmHg Ao max P.6 mmHg LV V1 VTI: 21.3 cm Ao mean P.5 mmHg GIOVANNY(I,D): 2.5 cm2 Ao V2 VTI: 22.9 cm GIOVANNY(V,D): 2.1 cm2 sev ratio: 0.93 GIOVANNY indexed to BSA (cm^2/m^2): 1.2 MV E max jakob: 60.5 cm/sec PA pr(Accel): 29.3 mmHg MV A max jakob: 67.6 cm/sec MV E/A: 0.90 Med Peak E' Jakob: 6.1 cm/sec E/E' med: 9.9 Lat Peak E' Jakob: 5.9 cm/sec E/E' lat: 10.3 E/e' average: 10.1 MV dec time: 0.22 sec SV(LVOT): 58.3 ml Reading Physician:10:02 AM
== END ==
PROVIDERS: PCP Family Medicine; Referring Provider Internal Medicine Pulmonary Disease; Visit Provider Internal Medicine Pulmonary Disease
DX: I27.82 Chronic pulmonary embolism (principal); I77.89 Other specified disorders of arteries and arterioles
CPT/HCPCS: 93306

== ENCOUNTER → 2023-05-05 08:13 | Outpatient (CLI) | payer MEDICARE, BC, SELFPAY ==
--- NOTE | 2023-05-05 08:14 | DI.MG.S_ITS ---
BILATERAL DIGITAL SCREENING MAMMOGRAM 3D/2D WITH CAD: 05/05/2023 CLINICAL: Routine screening. Family history of breast cancer. Comparison is made to exams dated: 04/15/2022 mammogram - [facility], 11/22/2020 mammogram - [facility], and 06/24/2016 mammogram - [facility]. There are scattered areas of fibroglandular density in both breasts (category b / 25%-50% glandular tissue). Current study was also evaluated with a Computer Aided Detection (CAD) system. No significant masses, calcifications, or other findings are seen in either breast. There has been no significant interval change. IMPRESSION: NEGATIVE There is no mammographic evidence of malignancy. A 1 year screening mammogram is recommended. Based on the Tyrer Cuzick model (a risk assessment model) the patient's lifetime risk is 19.6% and her 10 year risk is 10.6%. According to the ACR, ACS, and NCCN guidelines, an annual breast MRI exam along with mammogram is recommended if the patient's lifetime risk is 20% or greater. This exam was interpreted at Station ID: [id number]. NOTE: For mammograms, a report in lay terms will be sent to the patient. Approximately 15% of breast malignancies will not be visualized mammographically. In the management of a palpable breast mass, a negative mammogram must not discourage biopsy of a clinically suspicious lesion. Electronically Signed By: Rajat perez/jonny:05/05/2023 09:31:06 letter sent: Normal Exam ACR BI-RADS Category 1: Negative [id number]
== END ==
PROVIDERS: PCP Family Medicine; Referring Provider Family Medicine; Visit Provider Family Medicine
DX: Z12.31 Encounter for screening mammogram for malignant neoplasm of breast (principal); Z80.3 Family history of malignant neoplasm of breast
CPT/HCPCS: 77063; 77067

== ENCOUNTER 2023-06-12 13:54 | Outpatient (CLI) | payer MEDICARE, BC, SELFPAY ==
--- NOTE | 2023-06-12 13:55 | DI.RAD.S_ITS ---
PROCEDURE: PAIN L/S FACET INJ/BLK 1ST DORIAN INDICATIONS: SPONDYLOSIS COMPARISON: [facility], , PAIN L/S FACET INJ/BLK 1ST DORIAN, 02/20/2023, 16:08. FINDINGS: Fluoroscopic spot filming was performed to verify placement of spinal needles at the bilateral L4, L5 and S1 pedicular level(s), as labeled on the films. Appropriate location(s) of the needle tip(s) was confirmed by injection of iodinated contrast. IMPRESSION: Access needles at bilateral L4, L5 and S1 pedicles for bilateral L4, L5 and S1 medial branch blocks. Dictated by: Lavonne Duenas MD, PhD on 06/12/2023 at 16:20 Approved by: Lavonne Duenas MD, PhD on 06/12/2023 at 16:20
[2023-06-12 14:59] VITALS: BP 135/78; PULSE 88; RESP 20; TEMP 36.1; O2SAT 96
--- NOTE | 2023-06-12 15:11 | PC.NURSE ---
Patient reports that she does not have a ride today. She also reports that she took 20mg of diazepam at 1300. States Ill just stay here for a few hours and if i need to sleep it off. Informed her that she needs a ride and that this medication in mind altering and advised not to drive with it due to the increased risks. Dr Rodriguez aware. Patient was able to find ride by [place] who lives about [address] Rodriguez ok to move forward with procedure.
[2023-06-12 15:18] VITALS: BP 146/73; PULSE 92; RESP 19; O2SAT 98
[2023-06-12] MEDS: iopamidoL 15 ML VIAL 3 ML INJ (15:19)
[2023-06-12] MEDS: LIDOCAINE 1% 20 ML 5 ML INJ (15:19)
[2023-06-12] MEDS: BUPIVACAINE 0.5% (PF) 10 ML VIAL 5 ML INJ (15:20)
[2023-06-12 15:23] VITALS: BP 151/83; PULSE 85; RESP 16; O2SAT 97
[2023-06-12 15:28] VITALS: BP 143/65; PULSE 85; RESP 17; O2SAT 97
--- NOTE | 2023-06-12 15:33 | P.PCN_ITS ---
Date/Time/Diagnoses Date of procedure: 06/12/23 Time of procedure: 15:33 Pre-procedure diagnosis: 1. FACET ARTHROPATHY Post-procedure diagnosis: same Procedure Notes Procedure: 1. BILATERAL- L4, L5 and S1 DIAGNOSTIC MB BLOCKS with LA Anesthetic Indications: Sheyla is referred by Dr. Rueda for treatment of Bilateral Axial LBP. Physician: José Miguel Rodriguez Total Fluoroscopy time (seconds): 11 Total sedation minutes: 0 Complications: none Procedure in detail & Post-procedure care: DESCRIPTION OF PROCEDURE Fluoroscopically guided, contrast-controlled bilateral L4, L5 and S1 medial branch blocks with 0.5cc of 0.5% Marcaine. Following review of allergy and review of potential side effects and complications, including, but not necessarily limited to, infection, allergic reaction, local tissue breakdown, nerve injury, paralysis, stroke and possible , the patient indicated that the patient understood and agreed to proceed. An informed consent document was signed by the patient, witnessed by a nurse, and placed in the patient's chart. After review of previous anaesthesic history and IV conscious sedation the patient was deemed safe to proceed with today's procedure with IV conscious sedation as ASA class II designation. Safety time-out was performed to confirm patient ID, procedure to be performed and site of procedure. IV sedation was deemed unnecessary administered by the RN after DO order, titrated to patient comfort during the course of the procedure while the patient remained responsive to all verbal commands In the prone position, following sterile prep and drape of the lumbar region, the right L4, L5 and S1 anatomical location of the medial branch of the dorsal ramus was identified fluoroscopically. Subsequently an anesthetic skin wheal using 1% lidocaine solution was initiated at each of the anatomical spots. Subsequently then a 22-gauge 3.5-inch spinal needle was atraumatically introduced and advanced under fluoroscopic guidance at each of the corresponding sites at the right L4, L5 and S1 MB. After negative aspiration, 0.2cc of Isovue 200 was injected, confirming placement without vascular or intrathecal uptake. Subsequently then 0.5cc of 0.5% Marcaine solution was injected at each of the corresponding sites at the right L4, L5 and S1 medial branch locations. The identical procedure was replicated on the left. The patient tolerated the procedure well without signs or symptoms of complications prior to transfer to the recovery area continued monitoring without incident. Post-procedure, the patient was monitored initiating provocative activities to measure the amount of relief from block of the facetogenic pain. The patient reported a VAS of 7 prior to the procedure and a post-procedure VAS of 1. It has been a pleasure to assist in the diagnostic and therapeutic care of your patient. POST OP INSTRUCTIONS The patient was provided with a Pain Log to complete over the next several hours and subsequent days prior to the patient's follow up with the ordering physician. If the patient has tool rental technician relief to the solution applied, then they may be a candidate for medial branch rhizotomy. The patient is aware, was provided, once again, with a Pain Log and will follow up with the referring physician for review and clinical correlation
[2023-06-12 15:35] VITALS: BP 141/83; PULSE 94; RESP 18; O2SAT 97
== END 2023-06-12 15:50 | disposition home or self-care (01) ==
PROVIDERS: PCP Family Medicine; Referring Provider Physical Medicine & Rehabilitation; Visit Provider Physical Medicine & Rehabilitation
DX: M47.816 Spondylosis without myelopathy or radiculopathy, lumbar region (principal)
CPT/HCPCS: 64493; 64494

== ENCOUNTER → 2023-07-11 08:34 | Outpatient (CLI) | payer MEDICARE, BC, SELFPAY ==
--- NOTE | 2023-07-11 08:37 | DI.RAD.S_ITS ---
PROCEDURE: FL SHOULDER INJECTION MR/CT LT INDICATIONS: Primary osteoarthritis, left shoulder COMPARISON: [facility], CT, CT SHOULDER LEFT WITH CON, 07/11/2023, 9:16. TECHNIQUE: The indications, alternatives, benefits, risks, and complications of the procedure were explained to the patient. Written informed consent was obtained and placed in the chart. The shoulder was examined fluoroscopically and a site for needle placement chosen for entry into the glenohumeral joint from an anterior approach. The skin was prepped and draped in a sterile fashion, and 1% lidocaine infiltrated from skin down to joint capsule. A spinal needle was inserted into the glenohumeral joint, and a small amount of iodinated contrast media injected to confirm intra-articular placement of the needle tip. This was followed by approximately 12 mL of iodinated contrast. The needle was removed and a dressing was applied. The patient was given postprocedural instructions and sent to the CT suite for imaging. FINDINGS: A single fluoroscopic spot image demonstrates intra-articular location of injected iodinated contrast. IMPRESSION: Successful fluoroscopically guided administration of iodinated contrast solution into the shoulder joint for CT arthrogram. Dictated by: Rajat Bertrand M.D. on 07/11/2023 at 9:47 Approved by: Rajat Bertrand M.D. on 07/11/2023 at 9:48
--- NOTE | 2023-07-11 08:38 | DI.CT.S_ITS ---
PROCEDURE: CT SHOULDER LEFT WITH CON INDICATIONS: Primary osteoarthritis, left shoulder pain TECHNIQUE: After the intra-articular administration of 12 mL of dilute non-ionic contrast, 1-1.5 mm thick sections acquired from the acromioclavicular joint to the inferior scapula, with coronal and sagittal reformatting. COMPARISON: None. FINDINGS: Image quality: Excellent. Bones: Moderate acromioclavicular joint osteoarthritic changes are seen with significant joint space narrowing, subchondral sclerosis and downward osteophyte formation depressing the musculotendinous junction of supraspinatus. Moderate to severe glenohumeral joint osteoarthritic changes also noted with significant joint space narrowing, subchondral sclerosis and prominent inferior marginal osteophyte formation. There is no shoulder fracture or dislocation. No suspicious bony lesions. Visualized left scapular and left upper ribs are intact. Soft tissues: There is no full-thickness rotator cuff tendon rupture. No contrast extravasation into the subacromial subdeltoid bursa is seen. Multiple calcified loose bodies are noted within anterior glenohumeral joint space/subcoracoid bursal space and measures up to 1.5 and 1.7 cm in size are seen. No abnormal soft tissue calcifications. Visualized left lung field is clear. IMPRESSION: 1. Multiple calcified loose bodies in anterior aspect of glenohumeral joint/subcoracoid bursa as above. 2. Moderate acromioclavicular joint and moderate to severe glenohumeral joint osteoarthritis. No fracture or dislocation. No suspicious bony lesions. 3. No full-thickness rotator cuff tendon rupture. No significant rotator cuff muscle atrophy. No abnormal soft tissue calcifications. Dictated by: Vamsi Mendoza M.D. on 07/11/2023 at 15:36 Approved by: Vamsi Mendoza M.D. on 07/11/2023 at 15:41
[2023-07-11] MEDS: LIDOCAINE 1% 20 ML INJ (09:26)
== END ==
PROVIDERS: PCP Family Medicine; Referring Provider Orthopaedic Surgery; Visit Provider Orthopaedic Surgery
DX: M19.012 Primary osteoarthritis, left shoulder (principal); M24.012 Loose body in left shoulder
CPT/HCPCS: 23350; 73201

== ENCOUNTER 2023-07-17 14:13 | Outpatient (CLI) | payer MEDICARE, BC, SELFPAY ==
[2023-07-17] VITALS (8 sets, daily range): BP systolic 117–141; BP diastolic 73–86; PULSE 91–102; RESP 16–22; TEMP 36.2; O2SAT 91–98
--- NOTE | 2023-07-17 14:30 | DI.RAD.S_ITS ---
PROCEDURE: PAIN L/S FACET INJ/BLK 1ST DORIAN INDICATIONS: SPONDYLOSIS COMPARISON: [facility], , PAIN L/S FACET INJ/BLK 1ST DORIAN, 06/12/2023, 15:18. FINDINGS: Fluoroscopic spot filming was performed to verify placement of spinal needles at the bilateral L4, L5 and S1 medial branch if level(s), as labeled on the films. Appropriate location(s) of the needle tip(s) was confirmed by injection of iodinated contrast. IMPRESSION: [place] needles placed for bilateral L4, L5 and S1 medial branch blocks. Dictated by: Lavonne Duenas MD, PhD on 07/17/2023 at 16:08 Approved by: Lavonne Duenas MD, PhD on 07/17/2023 at 16:08
[2023-07-17] MEDS: MIDAZOLAM 2 MG/2 ML VIAL IV (14:41)
[2023-07-17] MEDS: iopamidoL 15 ML VIAL 3 ML INJ (14:51)
[2023-07-17] MEDS: LIDOCAINE 1% 20 ML 5 ML INJ (14:51)
[2023-07-17] MEDS: LIDOCAINE 2% INJ MDV 20ML 5 ML INJ (14:51)
--- NOTE | 2023-07-17 14:58 | PM.PROC.IR.1 ---
Date/Time/Diagnoses Date of procedure: 07/17/23 Time of procedure: 14:59 Pre-procedure diagnosis: 1. FACET ARTHROPATHY Post-procedure diagnosis: same Procedure Notes Procedure: 1. BILATERAL- L4, L5 and S1 DIAGNOSTIC MB BLOCKS with SA Anesthetic Indications: Sheyla is referred by Dr. Rueda for treatment of Bilateral Axial LBP. Physician: José Miguel Rodriguez Total Fluoroscopy time (seconds): 16 Total sedation minutes: 15 Complications: none Procedure in detail & Post-procedure care: DESCRIPTION OF PROCEDURE Fluoroscopically guided, contrast-controlled bilateral L4, L5 and S1 medial branch blocks with 0.5cc of 2% Lidocaine. Following review of allergy and review of potential side effects and complications, including, but not necessarily limited to, infection, allergic reaction, local tissue breakdown, nerve injury, paralysis, stroke and possible , the patient indicated that the patient understood and agreed to proceed. An informed consent document was signed by the patient, witnessed by a nurse, and placed in the patient's chart. After review of previous anaesthesic history and IV conscious sedation the patient was deemed safe to proceed with today's procedure with IV conscious sedation as ASA class II designation. Safety time-out was performed to confirm patient ID, procedure to be performed and site of procedure. IV sedation was accomplished with a combination of 2mg of Versed was administered by the RN after DO order, titrated to patient comfort during the course of the procedure while the patient remained responsive to all verbal commands In the prone position, following sterile prep and drape of the lumbar region, the right L4, L5 and S1 anatomical location of the medial branch of the dorsal ramus was identified fluoroscopically. Subsequently an anesthetic skin wheal using 1% lidocaine solution was initiated at each of the anatomical spots. Subsequently then a 22-gauge 3.5-inch spinal needle was atraumatically introduced and advanced under fluoroscopic guidance at each of the corresponding sites at the right L4, L5 and S1 MB. After negative aspiration, 0.2cc of Isovue 200 was injected, confirming placement without vascular or intrathecal uptake. Subsequently then 0.5cc of 2% Lidocaine solution was injected at each of the corresponding sites at the right L4, L5 and S1 medial branch locations. The identical procedure was replicated on the left. The patient tolerated the procedure well without signs or symptoms of complications prior to transfer to the recovery area continued monitoring without incident. Post-procedure, the patient was monitored initiating provocative activities to measure the amount of relief from block of the facetogenic pain. The patient reported a VAS of 7 prior to the procedure and a post-procedure VAS of 1. It has been a pleasure to assist in the diagnostic and therapeutic care of your patient. POST OP INSTRUCTIONS The patient was provided with a Pain Log to complete over the next several hours and subsequent days prior to the patient's follow up with the ordering physician. 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 The patient is aware, was provided, once again, with a Pain Log and will follow up with the referring physician for review and clinical correlation
== END 2023-07-17 15:13 | disposition home or self-care (01) ==
LOC: RAD 14:15
PROVIDERS: PCP Family Medicine; Referring Provider Physical Medicine & Rehabilitation; Visit Provider Physical Medicine & Rehabilitation
DX: M47.816 Spondylosis without myelopathy or radiculopathy, lumbar region (principal); M47.817 Spondylosis without myelopathy or radiculopathy, lumbosacral region
CPT/HCPCS: 64493; 64494; 99152; J2250

== ENCOUNTER → 2023-08-20 10:57 | Outpatient (CLI) | payer MEDICARE, BC, SELFPAY ==
[2023-08-20 12:31] LABS: Free T3, Triiodothyronine Free 2.88 pg/mL (2.77-5.27)
[2023-08-20 12:44] LABS: Thyroid Stimulating Hormone 2.93 uIU/mL (0.47-4.68)
== END ==
PROVIDERS: PCP Family Medicine; Referring Provider Family Medicine; Visit Provider Family Medicine
DX: E03.9 Hypothyroidism, unspecified (principal)
CPT/HCPCS: 36415; 84439; 84443; 84481

== ENCOUNTER 2023-09-23 10:47 | Outpatient (CLI) | payer MEDICARE, BC, SELFPAY ==
[2023-09-23] VITALS (12 sets, daily range): BP systolic 133–159; BP diastolic 73–94; PULSE 65–93; RESP 11–22; TEMP 36.1; O2SAT 92–100
--- NOTE | 2023-09-23 11:15 | DI.RAD.S_ITS ---
PROCEDURE: PAIN L/S MED/LAT N RFA BILAT INDICATIONS: FACET ARTHOPATHY COMPARISON: None. FINDINGS: Fluoroscopic spot filming was performed to verify placement of spinal needles at the right-side of L4, L5 and S1 level(s), as labeled on the films. Appropriate location(s) of the needle tip(s) was confirmed by injection of iodinated contrast. IMPRESSION: Fluoro guidance was provided intraoperatively for bilateral L4 through S1 medial branch rhizotomy performed by the ordering physician. Dictated by: Vamsi Mendoza M.D. on 09/23/2023 at 17:00 Approved by: Vamsi Mendoza M.D. on 09/23/2023 at 17:01
[2023-09-23] MEDS: fentaNYL 100 MCG/2 ML INJ 25 MCG IV ×2 (12:03→12:23)
[2023-09-23] MEDS: MIDAZOLAM 2 MG/2 ML VIAL 1 MG IV ×2 (12:03→12:23)
[2023-09-23] MEDS: LIDOCAINE 1% 20 ML 5 ML INJ (12:06)
[2023-09-23] MEDS: BUPIVACAINE 0.5% (PF) 10 ML VIAL 5 ML INJ (12:07)
--- NOTE | 2023-09-23 12:44 | P.PCN_ITS ---
Date/Time/Diagnoses Date of procedure: 09/23/23 Time of procedure: 12:44 Pre-procedure diagnosis: 1. RECALCITRANT FACET ARTHROPATHY Post-procedure diagnosis: same Procedure Notes Procedure: 1. BILATERAL L4 AND L5 MEDIAL BRANCH RADIOFREQUENCY NEUROTOMY AND S1 DORSAL RAMUS BRANCH RADIOFREQUENCY NEUROTOMY Indications: Sheyla is referred by Dr. Rueda for treatment of facet arthropathy. Physician: José Miguel Rodriguez Total Fluoroscopy time (seconds): 22 Total sedation minutes: 37 Complications: none Procedure in detail & Post-procedure care: DESCRIPTION OF PROCEDURE Bilateral L4 and L5 medial branch radiofrequency neurotomy and bilateral S1 dorsal ramus radiofrequency neurotomy under fluoroscopy with conscious sedation. The patient is well known to this clinic having undergone previous facet injections with good but temporary relief. The patient has experienced appropriate, concordant relief with previous facet and median branch blocks but the patient's pain has been recalcitrant to further conservative measures. Therefore, based upon the patient's relief and persistent symptoms, the patient is considered an appropriate candidate for facet rhizotomy. All of the patient's questions regarding the risks versus benefits of the procedure, including, but not limited to, bleeding, infection, temporary as well as lasting nerve injury, paralysis, stroke, and , as well treatment alternatives were answered to satisfaction. After obtaining informed consent, denial of pertinent drug allergies, as well as being made aware of the potential risks of bleeding, infection, spinal cord trauma, paralysis, temporary and permanent nerve damage, seizure, stroke, and possible , the patient was brought to the fluoroscopy suite and positioned prone on the fluoroscopy table. The lumbar region was prepped in usual sterile fashion and covered with a fenestrated drape in the usual sterile fashion. Appropriate monitors applied including pulse oximeter, pulse, and blood pressure for regular monitoring throughout the procedure. After review of previous anaesthesic history and IV conscious sedation the patient was deemed safe to proceed with today's procedure with IV conscious sedation as ASA class II designation. Safety time-out was performed to confirm patient ID, procedure to be performed and site of procedure. IV sedation was accomplished with a combination of 2mg of Versed and 50mcg of Fentanyl administered by the RN after DO order, titrated to patient comfort during the course of the procedure while the patient remained responsive to all verbal commands. After local infiltration using 1% lidocaine, under fluoroscopic guidance, a 10- cm RF insulated needle with a 10-mm active tip was positioned parallel to the junction of the right sacral ala and the superior articulating process where the S1 dorsal ramus resides. Needle placement was confirmed with motor stimulation of .5v on the right which produced local stimulation without radicular component. The stimulation was then increased to 2v with, once again, only local multifidus stimulation without radicular component. The needle was then removed and the identical procedure was performed along the length of the right L5 medial branch with motor stimulation at .7v on the right. The identical procedure was once again performed along the length of the right L4 medial branch with motor stimulation of .5v on the right. The medial branches were then anesthetised with 0.5% Marcaine. This was then followed by two discreet lesions performed at 80 degrees Celsius for 90 seconds each. The identical procedure was repeated on the left. The patient tolerated the procedure well without signs or symptoms of complications prior to transfer to the recovery area continued monitoring without incident. The patient was then transferred to the recovery area where they were observed for an appropriate period of time after the injection. The patient reported a VAS score of 7 prior to the procedure and a post-procedure VAS of 1. POST OP INSTRUCTIONS The patient was provided a Pain Log to continue to record the patient's response to the target-specific procedure prior to the patient's follow-up visit with the referring physician. Additionally, specific post-injection care instructions and a contact number to our office were provided if concerns arise regarding possible complications associated with the procedure are suspected.
== END 2023-09-23 12:57 | disposition home or self-care (01) ==
LOC: RAD 10:48
PROVIDERS: PCP Family Medicine; Referring Provider Physical Medicine & Rehabilitation; Visit Provider Physical Medicine & Rehabilitation
DX: M47.816 Spondylosis without myelopathy or radiculopathy, lumbar region (principal); M47.817 Spondylosis without myelopathy or radiculopathy, lumbosacral region
CPT/HCPCS: 64635; 64636; 99152; 99153; J2250; J3010

== ENCOUNTER 2023-10-07 08:58 | Day surgery (SDC) | payer MEDICARE, BC, SELFPAY ==
--- NOTE | 2023-10-07 | PATH_ITS ---
[facility] Accession Number: [id number] No. of containers..02 Tissue . 01 Material submitted: . PART A: rectum - RECTAL POLYPS X3 PART B: colon - ASCENDING POLYP . 01 Diagnosis: A. Rectal Polyps, Biopsy: Hyperplastic polyps. . B. Ascending Colon Polyp, Biopsy: Colonic mucosa with no diagnostic abnormality, consistent with polypoid redundancy. Negative for dysplasia and malignancy. MRV 10/10/2023 1316 Local . 01 Electronically signed: . Payal Pineda MD, Pathologist NPI- [id number] . 01 Gross description: . Part A: RECTAL POLYPS X3: Received in formalin are 3 fragment(s) of nur, soft tissue measuring 0.3 x 0.3 x 0.2 cm to 0.5 x 0.3 x 0.2 cm submitted entirely in 1 cassette(s) Part B: ASCENDING POLYP: Received in formalin are 2 fragment(s) of nur, soft tissue measuring 0.2 x 0.1 x 0.1 cm to 0.5 x 0.3 x 0.3 cm submitted entirely in 1 cassette(s) /JIGNA 10/08/20232024 Local . 01 Pathologist provided ICD-10: D12.8 . 01 CPT . 727972, [id number] Specimen Comment: A courtesy copy of this report has been sent to [phone] Performed at: 01 [facility] [address] [place] [address], [place], [place] [id number] MD Martinez Girard MD Phone: [phone]
[2023-10-07 09:38] VITALS: BP 130/92; PULSE 105; RESP 20; TEMP 36.2; O2SAT 96
[2023-10-07] MEDS: LACTATED RINGERS 1,000 ML 42 ML IV (09:47)
--- NOTE | 2023-10-07 09:55 | PM.HP.1 ---
History of Present Illness History of Present Illness Date Patient Seen: 10/07/23 Time Patient Seen: 09:55 Chief complaint: Screening Colonoscopy Narrative: 67-year-old woman personal history of colonic polyps here for screening colonoscopy. Last colonoscopy proximally 4 years ago in [place]. No family history of colon cancer both were sisters developed pancreatic cancer. No abdominal concerns today. [facility] Medical History DJD of both shoulders Facet arthropathy, lumbar Lumbar stenosis with neurogenic claudication Herniated nucleus pulposus, L2-3 left Scoliosis Cervicalgia Menopausal syndrome Urinary incontinence Chronic low back pain Slow transit constipation Family history of pancreatic cancer Severe obesity Urinary incontinence Primary osteoarthritis involving multiple joints GERD without esophagitis Acquired hypothyroidism Mixed hyperlipidemia Essential hypertension Supraventricular tachycardia Social History details: , moved from [place] in [place] Smoking Status: Former smoker alcohol intake: current Meds Home Medications and Allergies Home Medications Medication Instructions Recorded Confirmed Type omeprazole 20 mg capsule,delayed 20 mg PO DAILY 03/01/22 10/07/23 History release epinephrine 0.3 mg/0.3 mL 0.3 mg IM ONCE 10/31/22 10/07/23 History injection, auto-injector Disabled Parking #1 ea 12/13/22 08/04/23 Rx tramadol 50 mg tablet 50 mg PO TID PRN pain #60 tabs 01/08/23 10/07/23 Rx Synthroid 112 mcg tablet See Rx Instructions .Route 01/15/23 10/07/23 Rx (levothyroxine) .COMPLEX #90 tabs hydrochlorothiazide 12.5 mg tablet 12.5 mg PO QAM PRN increased leg 04/29/23 10/07/23 Rx swelling #30 tabs azelastine 137 mcg (0.1 %) nasal 1 spray intranasal ONCE 05/19/23 10/07/23 History spray aerosol amlodipine 5 mg-valsartan 160 See Rx Instructions .Route 08/20/23 10/07/23 Rx mg-hydrochlorothiazide 25 mg tablet .COMPLEX #90 tabs albuterol sulfate 90 mcg/actuation 2 puff inhalation Q6H PRN 08/21/23 10/07/23 Rx aerosol inhaler shortness of breath or wheezing #6.7 grams liothyronine 25 mcg tablet 25 mcg PO DAILY #90 tabs 08/21/23 10/07/23 Rx celecoxib 200 mg capsule 200 mg PO DAILY #90 caps 08/22/23 10/07/23 Rx gabapentin 600 mg tablet 600 mg PO .COMPLEX #90 tabs 08/22/23 10/07/23 Rx rivaroxaban 20 mg tablet (Xarelto) 20 mg PO QPM #90 tabs 09/02/23 10/07/23 Rx Allergies Allergy/AdvReac Type Severity Reaction Status Date / Time hydrocodone [From [place]] Allergy Rash Verified 10/07/23 09:26 pollen extracts AdvReac Mild Verified 10/07/23 09:20 Exam Vital Signs (past 8 hours): - 10/07/23 09:38 Temperature 97.2 F L Pulse Rate 105 H Respiratory Rate 20 Blood Pressure 130/92 H Pulse Oximetry 96 Oxygen Delivery Method Room Air Oxygen Delivery Method Room Air Narrative Exam Narrative: General adult woman alert oriented no acute distress Chest nonlabored respiration Extremities warm well perfused Assessment & Plan Assessment & Plan narrative: The patient requires colorectal screening and colonoscopy is recommended. Technical details were discussed. Risks, benefits, alternatives explained. Risks including but not limited to myocardial infarction, aspiration, bleeding, pain, missed lesion, incomplete examination, need for further radiographic studies, colonic perforation, and need for major abdominal surgery were discussed. All questions were answered to their satisfaction, and they are in agreement with this plan.
[2023-10-07 10:41] VITALS: BP 160/83; PULSE 94; RESP 27; TEMP 37.2; O2SAT 93
[2023-10-07 10:46] VITALS: BP 134/90; PULSE 107; RESP 26; O2SAT 93
--- NOTE | 2023-10-07 10:48 | P.OP.COLON_ITS ---
Operative Date/Time/Diagnoses Date of procedure: 10/07/23 Time of procedure: 10:48 Pre-op diagnosis: Personal history of colonic polyps Procedure & Clinicians Study performed: Colonoscopy and polypectomy Same procedure as scheduled: Yes Indications: Colorectal screening Personal history of colonic polyps Surgeon: Reno Hinojosa Procedure Notes Procedure in detail: The history and physical was performed/updated and the patient is ASA class is 3. The procedure was discussed in detail with the patient. Potential risks complications including infection, bleeding, missed diagnosis, perforation, need for surgery, and were explained. Their questions were answered and informed consent was obtained. Patient was brought to the procedure room and placed standard monitoring equipment. The patient's vital signs were monitored continuously throughout the entire procedure. Prior to starting time-out was performed. The patient was placed in the left lateral recumbent position. Procedural sedation was administered by anesthesia. Examination began with a thorough inspection of the perianal area there was no evidence of fissures, fistulae, external hemorrhoids or cutaneous malignancy. The colonoscopy scope was then placed into the anal canal and was advanced to the cecum, which was identified by the ileocecal valve, the appendiceal orifice and the confluence of the taenia. The scope was then slowly withdrawn examining colon thoroughly in all directions, irrigating it of any residual stool. The scope was retroflexed within the rectum The patient tolerated the procedure well. They will be discharged once criteria are met. The prep was of good/excellent quality. The withdrawl time was 12 minutes. FINDINGS * Tortuous colon particularly within the sigmoid colon * Bird diverticulosis * Ascending colon-5 mm sessile polyp removed with cold snare * Rectum-3 mm polyps x3 removed with biopsy forceps Specimen(s): other (Rectal polyps x3, ascending colonic polyp) Impression: Colonic polyps x4 Post-procedure Plan for aftercare: Follow-up is dependent on pathology findings Disposition: same day surgery
[2023-10-07 10:54] VITALS: BP 140/97; PULSE 104; RESP 26; TEMP 37.2; O2SAT 94
[2023-10-07 10:57] VITALS: BP 120/90; PULSE 100; RESP 27; O2SAT 93
== END 2023-10-07 11:17 | disposition home or self-care (01) ==
PROVIDERS: PCP Family Medicine; Referring Provider Surgery; Visit Provider Surgery
PROC: 0DJD8ZZ Inspection of Lower Intestinal Tract, Via Natural or Artificial Opening Endoscopic (ICD-10-PCS; CPT 45378; principal; 2023-10-07 09:45)
DX: Z12.11 Encounter for screening for malignant neoplasm of colon (principal); K21.9 Gastro-esophageal reflux disease without esophagitis; K63.89 Other specified diseases of intestine; K57.30 Diverticulosis of large intestine without perforation or abscess without bleeding; Z86.010 Personal history of colon polyps; D12.8 Benign neoplasm of rectum; D12.2 Benign neoplasm of ascending colon
CPT/HCPCS: 45385; 45380; J2250; J2704

== ENCOUNTER → 2023-11-26 15:56 | Outpatient (CLI) | payer MEDICARE, BC, SELFPAY ==
--- NOTE | 2023-11-26 15:58 | DI.MRI.S_ITS ---
PROCEDURE: MR THORACIC SPINE WO CON INDICATIONS: Scoliosis TECHNIQUE: Noncontrast sagittal T1 spine echo and T2 fast spin echo, sagittal STIR, and T2 fast spin echo through the thoracic spine. COMPARISON: [facility], CT, CT ANGIO CHEST PE PROTOCOL, 12/10/2022, 11:54. FINDINGS: Image quality: Excellent. Alignment and Curvature: There leftward scoliotic curvature with apex at L2. There is trace retrolisthesis T8 on T9, T9 and T10, T10-T11. Bone Marrow: Marrow is of normal overall signal. No acute vertebral body compression fractures. Mild reactive endplate changes are present at T12-L1. Spinal Cord: Visualized spinal cord is normal in size and signal. Paraspinous Soft Tissues: No paravertebral masses. Small posterior fat containing hernia is noted, unchanged compared to prior exam. Miscellaneous: Multilevel moderate to severe disc desiccation is present. There are minimal to mild scattered disc bulges throughout the thoracic spine most prominent at T8-9, T9-10 including a superimposed protrusion causing moderate to severe compromise of the left lateral recess and proximal left foraminal. Minimal left foraminal narrowing T6-7 [id number] left T8-9, severe left T9-10 moderate to severe right T10-11 T11-12. There is minimal effacement of the anterior thecal sac at T8-9, T9-10 mild spinal stenosis T12-L1. IMPRESSION: Scoliotic curvature with multilevel disc bulges, spinal stenosis and foraminal narrowing. Foraminal narrowing compromise left lateral recess is most prominent at T9-10 secondary to disc bulge with contributing effect of facet hypertrophy. Dictated by: Kenyatta Hobbs M.D. on 11/27/2023 at 12:19 Approved by: Kenyatta Hobbs M.D. on 11/27/2023 at 13:17
--- NOTE | 2023-11-26 15:58 | DI.MRI.S_ITS ---
PROCEDURE: MR CERVICAL SPINE WO CON INDICATIONS: Scoliosis, cervical radiculopathy TECHNIQUE: Noncontrast sagittal T1 spin echo and T2 fast spin echo, sagittal STIR, foraminal oblique sagittal T2 fast spin echo, and axial gradient echo or T2 fast spin echo through the cervical spine. COMPARISON: [facility], CR, XR CERVICAL SPINE 4V OR 5V, 11/26/2023, 15:59. FINDINGS: Image quality: Excellent. Alignment and Curvature: There is trace anterolisthesis of C3 on C4, retrolisthesis of C4 on C5, C5 on C6. Bone Marrow: Marrow demonstrates normal overall signal. Minimal reactive endplate changes are present C5-6. Spinal Cord: Visualized spinal cord has normal size and signal. No cerebellar tonsillar herniation. Paraspinous Soft Tissues: No paravertebral masses. Prevertebral soft tissues are normal in thickness. Discs: Multilevel moderate to severe disc desiccation most severe at C4-5, C5-6 and C6-7. C2-C3: Minimal disc bulge without spinal stenosis. Minimal right foraminal narrowing with uncovertebral hypertrophy. C3-C4: Mild disc bulge without spinal stenosis. Moderate to severe right and moderate left foraminal narrowing with uncovertebral hypertrophy. C4-C5: Mild disc bulge with thickening of the posterior longitudinal ligament. Minimal spinal stenosis. Moderate bilateral foraminal narrowing with facet and ligamentum flavum hypertrophy, left greater than right. C5-C6: Mild disc bulge with posterior ligament thickening. [id number] spinal stenosis. Moderate bilateral foraminal narrowing with uncovertebral hypertrophy. C6-C7: Disc bulge with posterior ligament thickening. Superimposed posterior central protrusion. Minimal canal narrowing. Moderate to severe right and moderate left foraminal narrowing with uncovertebral hypertrophy. C7-T1: No disc bulge or spinal stenosis. Mild left foraminal narrowing with uncovertebral hypertrophy. IMPRESSION: Multilevel disc bulges. Multilevel overall moderate foraminal narrowing most severe at C3-4. C6-7 secondary to uncovertebral arthropathy. Multilevel overall minimal to mild spinal stenosis secondary to disc bulges with contribution of posterior ligament thickening. Dictated by: Kenyatta Hobbs M.D. on 11/27/2023 at 13:17 Approved by: Kenyatta Hobbs M.D. on 11/27/2023 at 13:22
--- NOTE | 2023-11-26 15:58 | DI.RAD.S_ITS ---
PROCEDURE: XR CERVICAL SPINE 4V OR 5V INDICATIONS: Cervical radiculopathy TECHNIQUE: 5 views of the cervical spine acquired. COMPARISON: None. FINDINGS: Bones: No fractures or dislocations to the C6 level. Degenerative disc disease especially prominent from C4-C5 C5-C6 and C6-C7 with disc space loss, osteophytes, endplate sclerosis. Oblique images demonstrate show moderate bilateral osseous neural foraminal stenosis from C4 through C7 Soft tissues: No prevertebral soft tissue swelling. Note is made of total left shoulder arthroplasty hardware. IMPRESSION: Multilevel degenerative disc disease and moderate osseous neural foraminal stenosis Dictated by: Saroj Logan M.D. on 11/27/2023 at 8:07 Approved by: Saroj Logan M.D. on 11/27/2023 at 8:12
== END ==
LOC: MRI 15:56
PROVIDERS: PCP Family Medicine; Referring Provider Physical Medicine & Rehabilitation; Visit Provider Physical Medicine & Rehabilitation
DX: M50.121 Cervical disc disorder at C4-C5 level with radiculopathy (principal); M47.22 Other spondylosis with radiculopathy, cervical region; M48.02 Spinal stenosis, cervical region; M51.14 Intervertebral disc disorders with radiculopathy, thoracic region; M47.24 Other spondylosis with radiculopathy, thoracic region; M48.04 Spinal stenosis, thoracic region; M41.9 Scoliosis, unspecified
CPT/HCPCS: 72050; 72141; 72146

== ENCOUNTER → 2023-12-10 09:36 | Outpatient (CLI) | payer MEDICARE, BC, SELFPAY ==
[2023-12-10 10:16] LABS: Add Manual Diff / Slide Review NO; Basophils Absolute Auto 0 /uL (0-100); Basophils Percent Auto 0.6 % (0-2); Eosinophils Absolute Auto 100 /uL (0-450); Hematocrit 40.4 % (36-46); Hemoglobin 13.5 g/dL (12.0-16.0); Lymphocytes Absolute Auto 2000 /uL (1100-4500); Mean Corpuscular HGB Conc 33.5 % (30-36); Mean Corpuscular Hemoglobin 29.7 PG (26-34); Mean Corpuscular Volume 88.8 fL (80-100); Monocytes Absolute Auto 400 /uL (0-900); Monocytes Percent Auto 7.3 % (3-14); Neutrophils Absolute Auto 2900 /uL (1500-7000); Neutrophils Percent Auto 53.1 % (50-75); Platelet Count 200 X10^3/uL (150-400); Red Blood Cell Count 4.55 X10^6/uL (4.0-5.2); Red Cell Distribution Width 13.8 % (11.6-14.8); White Blood Cell Count 5.5 X10^3/uL (4.5-11.0)
[2023-12-10 10:25] LABS: Hemoglobin A1C% w Est Avg Glu 5.8 % (4.0-6.0)
[2023-12-10 10:28] LABS: HEMOLYSIS < 15 (0-50); Iron 94 ug/dL (37-170)
[2023-12-10 10:29] LABS: Alanine Aminotransferase 33 IU/L (<35); Albumin 3.8 g/dL (3.5-5.0); Albumin Globulin Ratio 1.4 (1.0-2.8); Alkaline Phosphatase 71 U/L (38-126); Aspartate Aminotransferase 31 IU/L (14-36); BUN Creatinine Ratio 19.4 (6-22); Bilirubin Total 0.7 mg/dL (0.2-1.3); Blood Urea Nitrogen 21 mg/dL (7-17); Calcium 9.5 mg/dL (8.4-10.2); Carbon Dioxide 28 mmol/L (22-32); Chloride 106 mmol/L (98-107); Estimated Glomerular Filt Rate 56 mL/min (>60); Globulin 2.8 g/dL (1.7-4.1); Glucose 118 mg/dL (80-110); HEMOLYSIS < 15 (0-50); Potassium 3.9 mmol/L (3.4-5.1); Sodium 138 mmol/L (137-145); Total Protein 6.6 g/dL (6.3-8.2)
[2023-12-10 10:33] LABS: High Sensitivity CRP - Cardiac 5.6 mg/L (1.0-3.0)
[2023-12-10 10:38] LABS: Percent Iron Saturation 27 % (15-50); Total Iron Binding Capacity 348 ug/dL (265-497); Transferrin 275 mg/dL (206-381)
[2023-12-10 10:45] LABS: Free T3, Triiodothyronine Free 3.47 pg/mL (2.77-5.27); Free T4, Direct Thyroxine 0.72 ng/dL (0.78-2.19)
[2023-12-10 11:04] LABS: Ferritin 83 ng/mL (11-264)
[2023-12-10 16:33] LABS: Creatinine Urine Random 75.5 mg/dL
[2023-12-10 16:38] LABS: Microalbumin Urine Random < 0.6 mg/dL (0-1.6)
[2023-12-12 08:10] LABS: Cholesterol, Total 209 mg/dL (100-199); HDL-Cholesterol 25 mg/dL (>39); HDL-Particle (Total) 24.6 umol/L (>=30.5); LDL Particle 2212 nmol/L (<1000); LDL Size 20.2 nm (>20.5); LDL-Cholsterol 151 mg/dL (0-99); LP-IR Score 79 (<=45); Small LDL- Particle 1449 nmol/L (<=527); Triglycerides 177 mg/dL (0-149)
== END ==
PROVIDERS: PCP Family Medicine; Referring Provider Family Medicine; Visit Provider Family Medicine
DX: R73.03 Prediabetes (principal); E78.2 Mixed hyperlipidemia; R59.0 Localized enlarged lymph nodes; I26.99 Other pulmonary embolism without acute cor pulmonale; Z80.0 Family history of malignant neoplasm of digestive organs; E03.9 Hypothyroidism, unspecified; K21.9 Gastro-esophageal reflux disease without esophagitis; I10 Essential (primary) hypertension; E66.9 Obesity, unspecified; Z83.49 Family history of other endocrine, nutritional and metabolic diseases; Z68.38 Body mass index [BMI] 38.0-38.9, adult
CPT/HCPCS: 36415; 80053; 80061; 82043; 82570; 82728; 83036; 83540; 83550; 83704; 84439; 84443; 84481; 85025; 86140

== ENCOUNTER → 2024-01-27 10:38 | Outpatient (CLI) | payer MEDICARE, BC, SELFPAY ==
[2024-01-27 13:45] LABS: Free T3, Triiodothyronine Free 6.81 pg/mL (2.77-5.27); Free T4, Direct Thyroxine 0.88 ng/dL (0.78-2.19)
[2024-01-27 13:59] LABS: Thyroid Stimulating Hormone 0.182 uIU/mL (0.47-4.68)
== END ==
PROVIDERS: PCP Family Medicine; Referring Provider Family Medicine; Visit Provider Family Medicine
DX: E03.9 Hypothyroidism, unspecified (principal)
CPT/HCPCS: 36415; 84439; 84443; 84481

== ENCOUNTER → 2024-03-17 09:09 | Outpatient (CLI) | payer MEDICARE, BC, SELFPAY ==
[2024-03-17 11:54] LABS: Influenza A - CEPHEID Flu A NEGATIVE (NEGATIVE); Influenza B - CEPHEID Flu B NEGATIVE (NEGATIVE); Respiratory Syncytial Virus Negative (Negative)
[2024-03-17 11:55] LABS: COVID-19 CEPHEID 4-PLEX PCR POSITIVE (Negative)
== END ==
PROVIDERS: PCP Family Medicine; Visit Provider Physician Assistant
DX: R05.1 Acute cough (principal)
CPT/HCPCS: 0241U

== ENCOUNTER → 2024-04-21 10:17 | Outpatient (CLI) | payer MEDICARE, BC, SELFPAY ==
[2024-04-21 10:51] LABS: Add Manual Diff / Slide Review NO; Basophils Absolute Auto 100 /uL (0-100); Basophils Percent Auto 0.8 % (0-2); Eosinophils Absolute Auto 200 /uL (0-450); Hematocrit 44.9 % (36-46); Lymphocytes Absolute Auto 2500 /uL (1100-4500); Lymphocytes Percent Auto 32.2 % (25-40); Mean Corpuscular HGB Conc 33.5 % (30-36); Mean Corpuscular Hemoglobin 30.1 PG (26-34); Mean Corpuscular Volume 89.9 fL (80-100); Monocytes Absolute Auto 400 /uL (0-900); Monocytes Percent Auto 5.6 % (3-14); Neutrophils Absolute Auto 4600 /uL (1500-7000); Neutrophils Percent Auto 59.4 % (50-75); Platelet Count 194 X10^3/uL (150-400); Red Blood Cell Count 4.99 X10^6/uL (4.0-5.2); Red Cell Distribution Width 14.5 % (11.6-14.8); White Blood Cell Count 7.8 X10^3/uL (4.5-11.0)
[2024-04-21 10:58] LABS: Hemoglobin A1C% w Est Avg Glu 5.5 % (4.0-6.0)
[2024-04-21 11:06] LABS: Alanine Aminotransferase 22 IU/L (<35); Albumin 4.2 g/dL (3.5-5.0); Albumin Globulin Ratio 1.5 (1.0-2.8); Alkaline Phosphatase 80 U/L (38-126); Aspartate Aminotransferase 25 IU/L (14-36); BUN Creatinine Ratio 22.5 (6-22); Bilirubin Total 0.6 mg/dL (0.2-1.3); Blood Urea Nitrogen 27 mg/dL (7-17); Calcium 8.9 mg/dL (8.4-10.2); Carbon Dioxide 23 mmol/L (22-32); Chloride 104 mmol/L (98-107); Estimated Glomerular Filt Rate 49 mL/min (>60); Globulin 2.8 g/dL (1.7-4.1); Glucose 107 mg/dL (80-110); HEMOLYSIS < 15 (0-50); Potassium 4.2 mmol/L (3.4-5.1); Sodium 135 mmol/L (137-145)
[2024-04-21 11:09] LABS: High Sensitivity CRP - Cardiac 7.5 mg/L (1.0-3.0)
[2024-04-21 11:25] LABS: Free T3, Triiodothyronine Free 4.05 pg/mL (2.77-5.27); Free T4, Direct Thyroxine 0.79 ng/dL (0.78-2.19)
[2024-04-21 11:39] LABS: Thyroid Stimulating Hormone 4.69 uIU/mL (0.47-4.68)
== END ==
PROVIDERS: PCP Family Medicine; Referring Provider Family Medicine; Visit Provider Family Medicine
DX: U07.1 COVID-19 (principal); R73.9 Hyperglycemia, unspecified; E03.9 Hypothyroidism, unspecified; E78.2 Mixed hyperlipidemia; I10 Essential (primary) hypertension
CPT/HCPCS: 36415; 80053; 80061; 83036; 83704; 84439; 84443; 84481; 85025; 86140

== ENCOUNTER → 2024-06-15 11:31 | Outpatient (CLI) | payer MEDICARE, BC, SELFPAY ==
[2024-06-15 12:45] LABS: Free T3, Triiodothyronine Free 4.21 pg/mL (2.77-5.27); Free T4, Direct Thyroxine 0.72 ng/dL (0.78-2.19)
[2024-06-15 12:59] LABS: Thyroid Stimulating Hormone 5.32 uIU/mL (0.47-4.68)
== END ==
PROVIDERS: PCP Family Medicine; Referring Provider Family Medicine; Visit Provider Family Medicine
DX: E03.9 Hypothyroidism, unspecified (principal)
CPT/HCPCS: 36415; 84439; 84443; 84481

== ENCOUNTER 2024-06-24 08:56 | Outpatient (CLI) | payer MEDICARE, BC, SELFPAY ==
[2024-06-24] VITALS (8 sets, daily range): BP systolic 104–157; BP diastolic 60–72; PULSE 66–80; RESP 14–19; TEMP 36.3; O2SAT 93–100
--- NOTE | 2024-06-24 09:30 | DI.RAD.S_ITS ---
PROCEDURE: PAIN C/T INTERLAMINAR INJECT INDICATIONS: CERVICAL STENOSIS COMPARISON: None. FINDINGS: Fluoroscopic spot filming was performed to verify placement of spinal needles at the C6-C7 level(s), as labeled on the films. Appropriate location(s) of the needle tip(s) was confirmed by injection of iodinated contrast. IMPRESSION: Intra procedural examination demonstrating appropriate positions of the needles. Dictated by: Vikas Hull M.D. on 06/24/2024 at 17:57 Approved by: Vikas Hull M.D. on 06/24/2024 at 17:57
[2024-06-24] MEDS: MIDAZOLAM 2 MG/2 ML VIAL IV (09:51)
[2024-06-24] MEDS: iopamidoL 15 ML VIAL 3 ML INJ (09:59)
[2024-06-24] MEDS: DEXAMETHASONE 10 MG/ML VIAL 20 MG INJ (09:59)
[2024-06-24] MEDS: BUPIVACAINE 0.25% (PF) VIAL 2 ML INJ (09:59)
--- NOTE | 2024-06-24 10:15 | P.PCN_ITS ---
Date/Time/Diagnoses Date of procedure: 06/24/24 Time of procedure: 10:15 Pre-procedure diagnosis: 1. CERVICAL STENOSIS, 2. CERVICAL HNP WITH UPPER EXTREMITY RADICULAR FEATURES Post-procedure diagnosis: same Procedure Notes Procedure: 1. FLUORSCOPICALLY GUIDED CONTRAST CONTROLLED INTERLAMINAR EPIDURAL STEROID INJECTION - C6/7 TL VALERIE Indications: Sheyla is referred by Dr. Rueda for treatment of Cervical HNP with Upper Extremity Paresthesias. Physician: José Miguel Rodriguez Total Fluoroscopy time (seconds): 24 Total sedation minutes: 22 Complications: none Procedure in detail & Post-procedure care: FINDINGS Cervical Stenosis due to disc deterioration and nerve root irritation and nerve root irritation DESCRIPTION OF PROCEDURE Fluoroscopically guided, contrast-controlled C6/7 translaminar epidural steroid injection with conscious sedation. Following review of allergy and review of potential side effects and complications, including, but not necessarily limited to, infection, allergic reaction, local tissue breakdown, temporary as well as permanent nerve injury, stroke, paralysis, and possible , the patient indicated that patient understood and agreed to proceed. An informed consent document was signed by the patient, witnessed by a nurse, and placed in the patient's chart. Additionally, other treatment options including modalities, medications, and physical therapy were reviewed with the patient. After review of previous anaesthesic history and IV conscious sedation the patient was deemed safe to proceed with today?s procedure with IV conscious sedation as ASA class II designation. Safety time-out was performed to confirm patient ID, procedure to be performed and site of procedure. IV sedation was accomplished with a combination of 2mg of Versed administered by the RN after DO order, titrated to patient comfort during the course of the procedure while the patient remained responsive to all verbal commands. In the prone position, following sterile prep and drape of the cervical region, the C6/7 translaminar space was identified fluoroscopically. The skin was anesthetized via a 25-gauge 1.5-inch needle with 1% lidocaine solution. At this point, a 25-gauge, 2.5-inch short bevel spinal needle was atraumatically introduced and advanced under fluoroscopic guidance into epidural space at the C6/7 translaminar space. Depth was confirmed on lateral view. Radiological data, including multiple fluoroscopic views of the cervical spine, reveal a spinal needle at the C6/7 translaminar space. Lateral views then show placement of the needle in the epidural space. Subsequent views show contrast material flowing superiorly and inferiorly in the epidural space. DSA fluoroscopy with live contrast injection, once again, confirmed no vascular or intrathecal uptake. At this point, using loss of resistance technique with saline and air, the epidural space was entered. Following negative aspiration, injection of approximately 1.5 cc of Isovue-200 with live fluoroscopy in the AP view confirmed epidural flow in the epidural space without vascular or intrathecal uptake observed. Subsequently, a test dose of 1 cc of 1% lidocaine solution was injected and patient was observed for two minutes without signs or symptoms of complications, including abdominal pain, shortness of breath, bilateral upper or lower extremity weakness, nausea and vomiting, prior to steroid injection. At this point, 2cc or 20mg of dexamethasone was then injected without incident. The patient tolerated the procedure well without signs or symptoms of compli cations prior to being transferred to the recovery area for further monitoring, The patient was then transferred to the recovery area where they were observed for an appropriate period of time after the injection. The patient reported a VAS score of 6 prior to the procedure and a post-procedure VAS of 0. POST OP INSTRUCTIONS The patient was provided a Pain Log to continue to record their response to the target-specific procedure prior to follow-up visit with the referring provider. Additionally, specific post-injection care instructions and a contact number to our office were provided if concerns arise regarding possible complications associated with the procedure are suspected.
== END 2024-06-24 10:26 | disposition home or self-care (01) ==
LOC: RAD 08:57
PROVIDERS: PCP Family Medicine; Referring Provider Physical Medicine & Rehabilitation; Visit Provider Physical Medicine & Rehabilitation
DX: M48.02 Spinal stenosis, cervical region (principal); M50.123 Cervical disc disorder at C6-C7 level with radiculopathy
CPT/HCPCS: 62321; 99152; J1100; J2250; J3490

== ENCOUNTER → 2024-09-23 14:32 | Outpatient (CLI) | payer MEDICARE, BC, SELFPAY | PROVIDERS: PCP Family Medicine; Referring Provider Family Medicine; Visit Provider Family Medicine | DX: R00.2 Palpitations (principal) | CPT/HCPCS: 93242; 93244 ==

== ENCOUNTER → 2024-10-05 08:57 | Outpatient (CLI) | payer MEDICARE, BC, SELFPAY ==
[2024-10-05 10:48] LABS: BUN Creatinine Ratio 20.9 (6-22); Blood Urea Nitrogen 24 mg/dL (7-17); Calcium 9.8 mg/dL (8.4-10.2); Carbon Dioxide 27 mmol/L (22-32); Chloride 107 mmol/L (98-107); Estimated Glomerular Filt Rate 52 mL/min (>60); Glucose 105 mg/dL (80-110); HEMOLYSIS < 15 (0-50); Potassium 4.6 mmol/L (3.4-5.1); Sodium 140 mmol/L (137-145)
[2024-10-06 04:08] LABS: CRP, High Sensitivity 4.34 mg/L (0.00-3.00)
[2024-10-07 15:39] LABS: Cholesterol, Total 182 mg/dL (100-199); HDL-Cholesterol 26 mg/dL (>39); HDL-Particle (Total) 25.6 umol/L (>=30.5); LDL Particle 1591 nmol/L (<1000); LDL Size 20.5 nm (>20.5); LDL-Cholsterol 129 mg/dL (0-99); LP-IR Score 85 (<=45); Small LDL- Particle 728 nmol/L (<=527); Triglycerides 150 mg/dL (0-149)
== END ==
PROVIDERS: PCP Family Medicine; Referring Provider Family Medicine; Visit Provider Family Medicine
DX: E78.5 Hyperlipidemia, unspecified (principal); I10 Essential (primary) hypertension; E78.2 Mixed hyperlipidemia
CPT/HCPCS: 36415; 80048; 80061; 83704; 86140

== ENCOUNTER → 2024-11-16 16:43 | Outpatient (CLI) | payer MEDICARE, BC, SELFPAY ==
[2024-11-16 17:52] LABS: Hemoglobin A1C% w Est Avg Glu 5.2 % (4.0-6.0)
[2024-11-16 18:17] LABS: Alanine Aminotransferase 26 IU/L (<35); Albumin 4.1 g/dL (3.5-5.0); Albumin Globulin Ratio 1.4 (1.0-2.8); Alkaline Phosphatase 63 U/L (38-126); Aspartate Aminotransferase 29 IU/L (14-36); BUN Creatinine Ratio 24.3 (6-22); Bilirubin Total 0.7 mg/dL (0.2-1.3); Blood Urea Nitrogen 28 mg/dL (7-17); Carbon Dioxide 25 mmol/L (22-32); Chloride 102 mmol/L (98-107); Estimated Glomerular Filt Rate 52 mL/min (>60); Glucose 89 mg/dL (80-110); HEMOLYSIS < 15 (0-50); Sodium 136 mmol/L (137-145); Total Protein 7.1 g/dL (6.3-8.2)
[2024-11-16 18:32] LABS: Free T3, Triiodothyronine Free 4.46 pg/mL (2.77-5.27); Free T4, Direct Thyroxine 1.12 ng/dL (0.78-2.19)
[2024-11-16 18:46] LABS: Thyroid Stimulating Hormone 1.07 uIU/mL (0.47-4.68)
== END ==
PROVIDERS: PCP Family Medicine; Referring Provider Family Medicine; Visit Provider Family Medicine
DX: R73.03 Prediabetes (principal); E03.9 Hypothyroidism, unspecified; I10 Essential (primary) hypertension; E78.2 Mixed hyperlipidemia; Z79.899 Other long term (current) drug therapy; K86.2 Cyst of pancreas
CPT/HCPCS: 36415; 80053; 80061; 83036; 83525; 83704; 84439; 84443; 84481; 86140

== ENCOUNTER → 2025-03-16 13:11 | Outpatient (CLI) | payer MEDICARE, BC, SELFPAY | PROVIDERS: PCP Family Medicine; Referring Provider Family Medicine; Visit Provider Family Medicine | DX: R06.02 Shortness of breath (principal); Z86.711 Personal history of pulmonary embolism | CPT/HCPCS: 94060; 94726; 94729 ==

== ENCOUNTER 2025-03-23 08:08 | Emergency (ER) | payer MEDICARE, BC, SELFPAY ==
[2025-03-23] VITALS (18 sets, daily range): BP systolic 110–142; BP diastolic 55–77; PULSE 62–100; RESP 7–29; TEMP 37; O2SAT 92–97; BMI 33.1
--- NOTE | 2025-03-23 08:16 | EKG_ITS ---
[address] [address] Test Date: 2025-03-23 Pat Name: Sheyla Bullock Department: Room: Gender: Female Input Output Clerk: KEITH : 1955 Requested By: Order Number: [id number] Reading MD: Brice Kruse Measurements Intervals [place] Rate: 75 P: 20 VT: 162 QRS: -2 QRSD: 80 T: -1 QT: 364 QTc: 406 Interpretive Statements Normal sinus rhythm with sinus arrhythmia Inferior infarct , age undetermined Anterior infarct , age undetermined Electronically Signed On 03-24-2025 13:42:10 PDT by Brice Kruse
--- NOTE | 2025-03-23 08:27 | DI.US.S_ITS ---
PROCEDURE: US PERIPH VENOUS LOW EXTREM LT INDICATIONS: Pain/swelling TECHNIQUE: Real-time imaging, as well as color and pulse Doppler interrogation, were performed of the lower extremity deep veins from the inguinal ligament to the popliteal fossa, with documentation of the visualized calf veins. COMPARISON: None. FINDINGS: Occlusive thrombus noted in the left popliteal vein with loss of normal compression. The common femoral, femoral and the visualized calf veins are normally compressible, and free of intraluminal thrombus. IMPRESSION: Abnormal study demonstrating occlusive deep vein thrombosis involving the left popliteal vein. Dictated by: Lavonne Duenas MD, PhD on 03/23/2025 at 9:05 Approved by: Lavonne Duenas MD, PhD on 03/23/2025 at 9:09
--- NOTE | 2025-03-23 08:27 | DI.CT.S_ITS ---
PROCEDURE: CT ANGIO CHEST PE PROTOCOL INDICATIONS: Pain/swelling TECHNIQUE: After the administration of intravenous contrast, 2 mm thick sections acquired from the pulmonary apices to the posterior costophrenic angles. 3-dimensional maximum intensity projection (MIP) coronal and sagittal reformats were then acquired through the thorax. For radiation dose reduction, the following was used: automated exposure control, adjustment of mA and/or kV according to patient size. COMPARISON: [facility], CT, CT ANGIO CHEST PE PROTOCOL, 12/10/2022, 11:54. FINDINGS: Image quality: Diagnostic. Pulmonary arteries: Pulmonary arteries are normal in size. Small intraluminal filling defects are noted in segmental and subsegmental branches of right lower lobe pulmonary artery. No evidence of filling defects in rest of the pulmonary branches Lower Neck: No enlarged lymph nodes. Thyroid: No thyroid nodules which require sonographic follow up, per consensus guidelines. Axillae: No enlarged lymph nodes. Chest Wall: Unremarkable. Bones: No aggressive appearing bony lesions. Lungs and Pleura: No pneumothorax or pleural effusions. Dependent atelectasis in posterior and lateral periphery of bilateral lower lung zone is seen. Hazy ground-glass opacities also noted scattered bilateral mid to lower lung field. Heart: Heart size is enlarged. No pericardial effusion. No signs of right heart strain at this time. Thoracic Vessels: No aortic aneurysm. Mediastinum and Re[place]: No enlarged lymph nodes. Esophagus: No wall thickening. No significant hiatal hernia. Upper Abdomen: Visualized upper abdomen solid organs and bowel loops appear normal. IMPRESSION: 1. Pulmonary embolus involving segmental and subsegmental branches of right lower lobe pulmonary artery. 2. Cardiomegaly, no pericardial effusion. No signs of right heart strain at this time. 3. Dependent atelectasis in posterior aspect of bilateral lung mixon. Subtle hazy ground-glass opacities are noted in bilateral lower lung zone concerning for mild pulmonary edema. No pleural effusion or pneumothorax. Dictated by: Vamsi Mendoza M.D. on 03/23/2025 at 8:02 Approved by: Vamsi Mendoza M.D. on 03/23/2025 at 8:12
--- NOTE | 2025-03-23 08:32 | ED.EXTPRO ---
HPI - Extremity Problem General Chief complaint: Shortness of Breath/Dyspnea Stated complaint: Having heart issues Time Seen by Provider: 03/23/25 08:10 Source: patient Mode of arrival: Ambulatory History of Present Illness HPI Narrative: Patient here for elevated D-dimer laboratory studies that were done yesterday in outpatient setting. Patient has history of DVT pulmonary embolism SVT. Patient states feels like she has not in the blood clot in the left leg or lungs again. She has been off of blood thinners for the past 1.5 years. She had blood clots due to a long flight, years ago. Patient states in the past week has had left leg/ankle swelling and discomfort. Similar to DVT in the past. However she also has history of hip problems and it may be due to that. Denies any exertional chest pain or shortness of breath. Patient has history of 2 cardiac ablations in 2004 for SVT. She is followed by [facility] cardiology services. Patient in no distress at this time. Related Data Home Medications ?Medication ?Instructions ?Recorded ?Confirmed epinephrine 0.3 mg/0.3 mL 0.3 mg IM ONCE 10/31/22 04/04/25 injection, auto-injector estradiol 2 mg (7.5 mcg/24 hour) 1 vag ring vaginal [id number] 12/01/24 04/04/25 vaginal ring (Estring) levothyroxine 137 mcg tablet 137 mcg PO DAILY 12/01/24 04/04/25 (Synthroid) pregabalin 75 mg capsule 75 mg PO BID 03/09/25 04/04/25 apixaban 5 mg tablet (Eliquis) 5 mg PO BID 04/04/25 04/04/25 semaglutide (weight loss) 1 mg/0.5 1 mg SUBCUT 04/04/25 04/04/25 mL subcutaneous pen injector (Wegovy) Previous Rx's ?Medication ?Instructions ?Recorded Disabled Parking #1 ea 12/22/23 fluticasone propionate 50 1 spray intranasal DAILY #16 grams 03/17/24 mcg/actuation nasal spray,suspension (Flonase Allergy Relief) liothyronine 25 mcg tablet 12.5 mcg (1/2 x 25 mcg) PO DAILY 07/28/24 #90 tabs empagliflozin 25 mg tablet 25 mg PO QAM #90 tabs 02/03/25 (Jardiance) tramadol 50 mg tablet 50 mg PO TID PRN pain #60 tabs 02/15/25 amlodipine 5 mg-valsartan 160 See Rx Instructions .Route 03/02/25 mg-hydrochlorothiazide 25 mg tablet .COMPLEX #90 tabs Disabled Parking Permit See Rx Instructions .Route 03/09/25 .COMPLEX #1 unit Allergies Allergy/AdvReac Type Severity Reaction Status Date / Time hydrocodone (From [place]) Allergy Rash Verified 04/04/25 08:12 pollen extracts AdvReac Mild Verified 04/04/25 08:12 Review of Systems Review of Systems Narrative: GENERAL: Negative chills, fatigue, malaise, fever, sweats. HEENT: Negative sinus pain, ear pain, sore throat RESPIRATORY: Positive dyspnea, negative cough CARDIOVASCULAR: Negative chest pain, palpitations positive dizziness GASTROINTESTINAL: Negative vomiting, nausea, abdominal pain : Negative dysuria, frequency, hematuria MUSCULOSKELETAL: Positive muscle or bony pain SKIN: Negative rash, skin lesions NEUROLOGIC: Negative weakness, numbness ROS Unobtainable: All systems reviewed & are unremarkable except as noted in HPI and below Patient History Medical History (Updated 04/04/25 @ 09:02 by José Miguel Rodriguez DO) Greater trochanteric bursitis Trochanteric bursitis of both hips History of pulmonary embolism (~11/2022) Sacral back pain HNP (herniated nucleus pulposus), thoracic HNP (herniated nucleus pulposus), cervical Depressed affect DJD of both shoulders Facet arthropathy, lumbar Lumbar stenosis with neurogenic claudication Herniated nucleus pulposus, L2-3 left Scoliosis Cervicalgia Menopausal syndrome Urinary incontinence Slow transit constipation Family history of pancreatic cancer Severe obesity Primary osteoarthritis involving multiple joints GERD without esophagitis Acquired hypothyroidism Mixed hyperlipidemia Essential hypertension Social History details: , moved from [place] in 2019 alcohol intake: current Smoking Status: Never smoker alcohol intake frequency: 0-2 drinks per day Exam Narrative Exam Narrative: GENERAL: in no distress, not toxic not dyspneic HEAD: Normocephalic. EYES: Pupils equal round ENT: Mucous membranes moist. NECK: Trachea midline. CARDIOVASCULAR: Regular rate and rhythm RESPIRATORY: Clear to auscultation. Breath sounds equal bilaterally. No wheezes, rales, or rhonchi. GASTROINTESTINAL: Abdomen soft, non-tender EXTREMITIES: No gross deformities. Examination left leg and calf. Grossly symmetric to the right. No palpable cords. Negative Homans test negative Brannon test. Calf is soft nontender. Foot is warm soft pink brisk cap refills strong pedal pulse light touch intact to foot and toes. No edema of the ankle or foot seen. BACK: No flank tenderness. NEURO: AOx4. Clear speech SKIN: Warm and dry PSYCH: Not anxious, is cooperative Initial Vital Signs Initial Vital Signs: Vital Signs Pulse Rate 81 03/23/25 08:15 Blood Pressure 120/77 03/23/25 08:15 Pulse Oximetry 96 03/23/25 08:15 Course Orders Ordered: Discontinued Medications Apixaban (Apixaban 5 Mg Tablet) 10 mg PO NOW ONE Stop: 03/23/25 10:20 Last Admin: 03/23/25 10:26 Dose: 10 mg Documented By: AYAKA Sodium Chloride (Normal Saline 0.9%) 500 mls @ 1,000 mls/hr IV BOLUS ONE Stop: 03/23/25 09:00 Last Infusion: 03/23/25 11:27 Dose: Infused Documented By: Admin: 03/23/25 10:26 Dose: 1,000 mls/hr Documented By: AYAKA Vital Signs Vital signs: Vital Signs - 8 hr 03/23/25 08:15 03/23/25 08:15 03/23/25 08:18 Temperature 98.6 F Pulse Rate 81 100 H Respiratory Rate 16 Blood Pressure 120/77 120/77 Pulse Oximetry 96 94 Oxygen Delivery Method Room Air 03/23/25 08:30 03/23/25 08:30 03/23/25 08:48 Temperature Pulse Rate 81 Respiratory Rate Blood Pressure 127/75 120/73 Pulse Oximetry 93 Oxygen Delivery Method 03/23/25 08:48 03/23/25 09:00 03/23/25 09:00 Temperature Pulse Rate 85 78 Respiratory Rate 12 Blood Pressure 116/67 Pulse Oximetry 96 92 Oxygen Delivery Method 03/23/25 09:15 03/23/25 09:15 03/23/25 09:30 Temperature Pulse Rate 67 Respiratory Rate Blood Pressure 110/61 110/63 Pulse Oximetry Oxygen Delivery Method 03/23/25 09:30 03/23/25 09:45 03/23/25 09:45 Temperature Pulse Rate 62 73 Respiratory Rate 18 18 Blood Pressure 110/67 Pulse Oximetry 92 92 Oxygen Delivery Method 03/23/25 10:00 03/23/25 10:00 03/23/25 10:15 Temperature Pulse Rate 65 Respiratory Rate 17 Blood Pressure 117/64 122/57 L Pulse Oximetry 95 Oxygen Delivery Method 03/23/25 10:15 03/23/25 10:30 03/23/25 10:30 Temperature Pulse Rate 88 82 Respiratory Rate 27 H 29 H Blood Pressure 116/70 Pulse Oximetry 95 96 Oxygen Delivery Method 03/23/25 10:45 03/23/25 11:00 Temperature Pulse Rate 70 80 Respiratory Rate 14 20 Blood Pressure 136/62 124/64 Pulse Oximetry 95 94 Oxygen Delivery Method Room Air MDM - Extremity (Nontraumatic) Lab Data 03/23/25 08:20 03/23/25 08:20 Labs: Lab Results 03/23/25 Range/Units 08:20 WBC 7.5 (4.5-11.0) X10^3/uL RBC 4.79 (4.0-5.2) X10^6/uL Hgb 14.4 (12.0-16.0) g/dL Hct 43.0 (36-46) % MCV 89.8 (80-100) fL MCH 30.0 (26-34) PG MCHC 33.4 (30-36) % RDW 14.3 (11.6-14.8) % Plt Count 158 (150-400) X10^3/uL Neut % (Auto) 62.2 (50-75) % Lymph % (Auto) 28.8 (25-40) % Gosper % (Auto) 6.8 (3-14) % Eos % (Auto) 1.6 L (2-4) % Baso % (Auto) 0.6 (0-2) % Neut # (Auto) 4600 (9150-6171) /uL Lymph # (Auto) 2200 (3381-1941) /uL Gosper # (Auto) 500 (0-900) /uL Eos # (Auto) 100 (0-450) /uL Baso # (Auto) 0 (0-100) /uL PT 11.2 (9.4-12.5) SECONDS INR 1.0 (0.9-1.3) APTT 30 (25.1-36.5) SECONDS Sodium 137 (137-145) mmol/L Potassium 4.0 (3.4-5.1) mmol/L Chloride 103 (98-107) mmol/L Carbon Dioxide 29 (22-32) mmol/L BUN 30 H (7-17) mg/dL Creatinine 1.14 H (0.52-1.04) mg/dL Estimated GFR 52 L (>60) mL/min BUN/Creatinine Ratio 26.3 H (6-22) Glucose 92 (70-99) mg/dL Calcium 10.1 (8.4-10.2) mg/dL Total Bilirubin 1.3 (0.2-1.3) mg/dL AST 28 (14-36) IU/L ALT 27 (<35) IU/L Alkaline Phosphatase 61 (38-126) U/L Total Creatine Kinase 47 (30-135) U/L Troponin I < 0.012 (0.01-0.034) ng/mL Total Protein 7.0 (6.3-8.2) g/dL Albumin 4.1 (3.5-5.0) g/dL Globulin 2.9 (1.7-4.1) g/dL Albumin/Globulin Ratio 1.4 (1.0-2.8) Imaging Data US - DVT: Radiologist's Impression: [place] [address] Ultrasound Report Signed Patient: Sheyla Bullock MR#: [id number] : 1955 Acct:[id number] Age/Sex: 69 / F Date of Service: 03/23/25 Loc: ED Accession Number: [id number] Procedure: [facility] venous low extrem lt Ordering Provider: Cooper Redmond MD PROCEDURE: US [facility] VENOUS LOW EXTREM LT INDICATIONS: Pain/swelling TECHNIQUE: Real-time imaging, as well as color and pulse Doppler interrogation, were performed of the lower extremity deep veins from the inguinal ligament to the popliteal fossa, with documentation of the visualized calf veins. COMPARISON: None. FINDINGS: Occlusive thrombus noted in the left popliteal vein with loss of normal compression. The common femoral, femoral and the visualized calf veins are normally compressible, and free of intraluminal thrombus. IMPRESSION: Abnormal study demonstrating occlusive deep vein thrombosis involving the left popliteal vein. Dictated by: Lavonne Duenas MD, PhD on 03/23/2025 at 9:05 Approved by: Lavonne Duenas MD, PhD on 03/23/2025 at 9:09 CT scan - chest: Radiologist's Impression: [address] [address] [address] Scan Report Signed Patient: Sheyla Bullock MR#: [id number] : 1955 Acct:[id number] Age/Sex: 69 / F Date of Service: 03/23/25 Loc: ED Accession Number: [id number] Procedure: CT angio chest PE protocol Ordering Provider: Cooper Redmond MD PROCEDURE: CT ANGIO CHEST PE PROTOCOL INDICATIONS: Pain/swelling TECHNIQUE: After the administration of intravenous contrast, 2 mm thick sections acquired from the pulmonary apices to the posterior costophrenic angles. 3-dimensional maximum intensity projection (MIP) coronal and sagittal reformats were then acquired through the thorax. For radiation dose reduction, the following was used: automated exposure control, adjustment of mA and/or kV according to patient size. COMPARISON: [facility], CT, CT ANGIO CHEST PE PROTOCOL, 12/10/2022, 11:54. FINDINGS: Image quality: Diagnostic. Pulmonary arteries: Pulmonary arteries are normal in size. Small intraluminal filling defects are noted in segmental and subsegmental branches of right lower lobe pulmonary artery. No evidence of filling defects in rest of the pulmonary branches Lower Neck: No enlarged lymph nodes. Thyroid: No thyroid nodules which require sonographic follow up, per consensus guidelines. Axillae: No enlarged lymph nodes. Chest Wall: Unremarkable. Bones: No aggressive appearing bony lesions. Lungs and Pleura: No pneumothorax or pleural effusions. Dependent atelectasis in posterior and lateral periphery of bilateral lower lung zone is seen. Hazy ground-glass opacities also noted scattered bilateral mid to lower lung field. Heart: Heart size is enlarged. No pericardial effusion. No signs of right heart strain at this time. Thoracic Vessels: No aortic aneurysm. Mediastinum and Rehana: No enlarged lymph nodes. Esophagus: No wall thickening. No significant hiatal hernia. Upper Abdomen: Visualized upper abdomen solid organs and bowel loops appear normal. IMPRESSION: 1. Pulmonary embolus involving segmental and subsegmental branches of right lower lobe pulmonary artery. 2. Cardiomegaly, no pericardial effusion. No signs of right heart strain at this time. 3. Dependent atelectasis in posterior aspect of bilateral lung mixon. Subtle hazy ground-glass opacities are noted in bilateral lower lung zone concerning for mild pulmonary edema. No pleural effusion or pneumothorax. Dictated by: Vamsi Mendoza M.D. on 03/23/2025 at 8:02 Approved by: Vamsi Mendoza M.D. on 03/23/2025 at 8:12 [facility] Narrative Medical decision making narrative: Patient here for elevated D-dimer laboratory studies that were done yesterday in outpatient setting. Patient has history of DVT pulmonary embolism SVT. Patient states feels like she has not in the blood clot in the left leg or lungs again. She has been off of blood thinners for the past 1.5 years. She had blood clots due to a long flight, years ago. Patient states in the past week has had left leg/ankle swelling and discomfort. Similar to DVT in the past. However she also has history of hip problems and it may be due to that. Denies any exertional chest pain or shortness of breath. Patient has history of 2 cardiac ablations in 2004 for SVT. She is followed by [facility] cardiology services. Patient in no distress at this time. After history and exam, CBC CMP troponin CT chest ultrasound left leg [facility] Medical records reviewed: Holter monitor results October 13, 2024, cardiology office notes July 16, 2023 Differential considered: Includes but not limited to DVT pulmonary embolism sciatica Lab Test results independently reviewed as above. Pertinent findings: WBC 7.5 hemoglobin 14.4 INR 1.0 BUN 30 creatinine 1.14 GFR 52 this is patient's baseline renal function, troponin less than 0.012 Independently reviewed EKG normal sinus rhythm rate [address] elevation or depression Imaging studies independently reviewed: CT chest positive PE right side without heart strain, ultrasound left leg positive popliteal DVT Consultations: 9:[address] Kruse, hospitalist, at this time patient can be discharged home on Eliquis. Vital signs are reassuring. CT is reassuring no right heart strain. Patient has been discharged home originally with blood clot in the leg and the lung, no hospitalization. 11:30 a.m.. I spoke with patient's Cardiology team with [facility], Dr. 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 Norris. No indication for admission at this time. Re-evaluations: 10:19 a.m.. Updated patient results. She does agree with treatment plan however she does mentions some chest ?lump? sensation for many months. No chest pain though. 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 I will contact her cardiology group regarding her chest sensation for disposition plan. 12:10 a.m.. Spoke with patient results and my discussion with hospitalist and cardiology team. She is agreeable with treatment plan and very comfortable with this. She has no symptoms at this time. The lump that she felt in her chest is gone. Again this is not new. This has been going on for many many months. Discussion: Appropriate for discharge home. Patient hemodynamically stable. Hospitalist and cardiology team was contacted. Patient can be discharged home. Patient feeling much more relieved with diagnosis. No repeat troponin indicated at this time as symptoms have been going on for many weeks. Diagnosis: Left leg DVT, right pulmonary embolism Discharge Plan Departure Patient Disposition: Home Clinical Impression: Pulmonary embolism Qualifiers: Pulmonary embolism type: unspecified Chronicity: acute Acute cor pulmonale presence: without acute cor pulmonale Qualified Code(s): I26.99 - Other pulmonary embolism without acute cor pulmonale Acute deep vein thrombosis (DVT) of left lower extremity Qualifiers: Affected thrombotic vein of extremity: popliteal Qualified Code(s): I82.432 - Acute embolism and thrombosis of left popliteal vein Instructions: DI for Deep Vein Thrombosis, DI for Pulmonary Embolism Activity Restrictions/Additional Instructions: You are being treated for blood clot in your left leg and your right lung. Exam is otherwise reassuring. Please do call your pulmonology services and cardiology services today or tomorrow for follow up within a week. Please see your family doctor within a week for re-evaluation as well. Prescription for Eliquis has been sent to your pharmacy to sampler pickup and continue tonight. Return if worse if any questions or concerns. Prescriptions: No Action fluticasone propionate [Flonase Allergy Relief] 50 mcg/actuation spray,suspension 1 spray intranasal DAILY Qty: 16 0RF Rx Instructions: administer into each nostril liothyronine 25 mcg tablet 12.5 mcg PO DAILY Qty: 90 0RF Rx Instructions: if feeling hypothyroid, ok to use full tab 1-2 d/wk Jardiance 25 mg tablet 25 mg PO QAM Qty: 90 0RF tramadol 50 mg tablet 50 mg PO TID PRN (Reason: pain) Qty: 60 1RF [id number]-[id number] 5-160-25 mg tablet See Rx Instructions .ROUTE .COMPLEX Qty: 90 0RF Dose Instruction: TAKE 1/2 TABLET BY MOUTH TO START, MONITOR HOME BLOOD PRESSURE AND IF IT IS GREATER THAN 140/90, INCREASE TO FULL DOSE Rx Instructions: TAKE 1/2 TABLET BY MOUTH DAILY TO START, MONITOR HOME BLOOD PRESSURE AND IF IT IS GREATER THAN 140/90, INCREASE TO FULL TAB pregabalin 75 mg capsule 75 mg PO BID Disabled Parking Permit See Rx Instructions .ROUTE .COMPLEX Qty: 1 0RF Rx Instructions: I find this patient to be medically disabled and qualify for disabled parking as indicated and signed on the accompanying disabled parking application for individuals. (DME) Disabled Parking See Rx Instructions .Route .MEDSUPPLY Qty: 1 0RF Rx Instructions: I find this patient to be medically disabled and qualified for disabled parking as indicated and signed on the accompanying disabled parking application for individuals. epinephrine 0.3 mg/0.3 mL auto-injector 0.3 mg IM ONCE Estring 2 mg (7.5 mcg /24 hour) ring 1 vag ring vaginal [id number] levothyroxine [Synthroid] 137 mcg tablet 137 mcg PO DAILY Wegovy 1 mg/0.5 mL pen injector 1 mg SUBCUT Eliquis 5 mg tablet 5 mg PO BID Referrals: Mayda Rueda DO [Primary Care Provider, Medical] Stand Alone Forms: Patient Portal/API
[2025-03-23 08:38] LABS: Add Manual Diff / Slide Review NO; Hematocrit 43.0 % (36-46); Hemoglobin 14.4 g/dL (12.0-16.0); Lymphocytes Absolute Auto 2200 /uL (1100-4500); Mean Corpuscular HGB Conc 33.4 % (30-36); Mean Corpuscular Hemoglobin 30.0 PG (26-34); Mean Corpuscular Volume 89.8 fL (80-100); Platelet Count 158 X10^3/uL (150-400)
[2025-03-23 08:40] LABS: INR 1.0 (0.9-1.3); Prothrombin Time 11.2 SECONDS (9.4-12.5)
[2025-03-23 08:42] LABS: PTT Partial Thromboplastin Tim 30 SECONDS (25.1-36.5)
[2025-03-23 08:43] LABS: Alanine Aminotransferase 27 IU/L (<35); Albumin 4.1 g/dL (3.5-5.0); Albumin Globulin Ratio 1.4 (1.0-2.8); Alkaline Phosphatase 61 U/L (38-126); Blood Urea Nitrogen 30 mg/dL (7-17); Calcium 10.1 mg/dL (8.4-10.2); Carbon Dioxide 29 mmol/L (22-32); Chloride 103 mmol/L (98-107); Creatine Kinase 47 U/L (30-135); Estimated Glomerular Filt Rate 52 mL/min (>60); Globulin 2.9 g/dL (1.7-4.1); Glucose 92 mg/dL (70-99); HEMOLYSIS < 15 (0-50); Potassium 4.0 mmol/L (3.4-5.1); Sodium 137 mmol/L (137-145); Total Protein 7.0 g/dL (6.3-8.2)
[2025-03-23 08:55] LABS: Troponin I < 0.012 ng/mL (0.01-0.034)
[2025-03-23] MEDS: APIXABAN 5 MG TABLET 10 MG PO (10:26)
[2025-03-23] MEDS: SODIUM CHLORIDE 0.9% 500 ML 1000 ML IV (10:26)
== END 2025-03-23 13:02 | disposition home or self-care (01) ==
PROVIDERS: Emergency Provider Emergency Medicine; PCP Family Medicine
DX: I82.432 Acute embolism and thrombosis of left popliteal vein (principal); Z86.711 Personal history of pulmonary embolism
CPT/HCPCS: 71275; 80053; 82550; 84484; 85025; 85610; 85730; 93005; 93971; 96360; 99284; Q9967

== ENCOUNTER 2025-03-25 03:16 | Emergency (ER) | payer MEDICARE, BC, SELFPAY ==
[2025-03-25 03:26] VITALS: BP 120/63; PULSE 81; RESP 16; TEMP 36.9; O2SAT 95; BMI 33.3
--- NOTE | 2025-03-25 07:00 | ED.EXTPRO ---
HPI - Extremity Problem General Chief complaint: Extremity Problem,Nontraumatic Stated complaint: left leg dvt, lung pulmonary embolism Time Seen by Provider: 03/25/25 03:40 Source: patient Mode of arrival: Ambulatory History of Present Illness HPI Narrative: Pleasant 69-year-old woman who was diagnosed with DVT and PE at our ER yesterday comes back in with increased left leg pain which is the side she had the DVT on. She denies any chest pain, palpitations, shortness of breath, diaphoresis, nausea, cough or coughing up blood, lightheadedness, dizziness, syncope. She has no other concerns or complaints at this time. She states she only came in because the nurse from her insurance advised her to. Related Data Home Medications ?Medication ?Instructions ?Recorded ?Confirmed epinephrine 0.3 mg/0.3 mL 0.3 mg IM ONCE 10/31/22 03/09/25 injection, auto-injector estradiol 2 mg (7.5 mcg/24 hour) 1 vag ring vaginal [id number] 12/01/24 03/09/25 vaginal ring (Estring) levothyroxine 137 mcg tablet 137 mcg PO DAILY 12/01/24 03/09/25 (Synthroid) pregabalin 75 mg capsule 75 mg PO BID 03/09/25 03/09/25 Previous Rx's ?Medication ?Instructions ?Recorded Disabled Parking #1 ea 12/22/23 fluticasone propionate 50 1 spray intranasal DAILY #16 grams 03/17/24 mcg/actuation nasal spray,suspension (Flonase Allergy Relief) guaifenesin 1,200 mg tablet, 1,200 mg PO Q12H #30 tabs 03/17/24 extended release 12 hr hydrochlorothiazide 12.5 mg tablet 12.5 mg PO QAM PRN increased leg 04/28/24 swelling #30 tabs liothyronine 25 mcg tablet 12.5 mcg (1/2 x 25 mcg) PO DAILY 07/28/24 #90 tabs gabapentin 300 mg capsule 300 mg PO TID #90 caps 09/23/24 Held on 12/01/24. Instructions: Home Medication placed on hold at Doctor's office celecoxib 200 mg capsule 200 mg PO DAILY #90 caps 02/03/25 empagliflozin 25 mg tablet 25 mg PO QAM #90 tabs 02/03/25 (Jardiance) tramadol 50 mg tablet 50 mg PO TID PRN pain #60 tabs 02/15/25 amlodipine 5 mg-valsartan 160 See Rx Instructions .Route 03/02/25 mg-hydrochlorothiazide 25 mg tablet .COMPLEX #90 tabs Disabled Parking Permit See Rx Instructions .Route 03/09/25 .COMPLEX #1 unit semaglutide (weight loss) 1.7 1.7 mg (0.75 mL) SUBCUT QWEEK #3 mL 03/09/25 mg/0.75 mL subcutaneous pen injector apixaban 5 mg (74 tabs) tablets in See Rx Instructions PO .COMPLEX 03/23/25 a dose pack #74 ea Allergies Allergy/AdvReac Type Severity Reaction Status Date / Time hydrocodone (From Stem) Allergy Rash Verified 03/25/25 03:26 pollen extracts AdvReac Mild Verified 03/25/25 03:26 Patient History Medical History (Updated 03/25/25 @ 03:54 by Fitz Borges MD) History of pulmonary embolism (~11/2022) Sacral back pain HNP (herniated nucleus pulposus), thoracic HNP (herniated nucleus pulposus), cervical Depressed affect DJD of both shoulders Facet arthropathy, lumbar Lumbar stenosis with neurogenic claudication Herniated nucleus pulposus, L2-3 left Scoliosis Cervicalgia Menopausal syndrome Urinary incontinence Slow transit constipation Family history of pancreatic cancer Severe obesity Primary osteoarthritis involving multiple joints GERD without esophagitis Acquired hypothyroidism Mixed hyperlipidemia Essential hypertension Social History details: , moved from [place] in 2019 Smoking Status: Never smoker alcohol intake: current Smoking Status: Never smoker alcohol intake frequency: 0-2 drinks per day Exam Initial Vital Signs Initial Vital Signs: Vital Signs Temperature 98.5 F 03/25/25 03:26 Pulse Rate 81 03/25/25 03:26 Respiratory Rate 16 03/25/25 03:26 Blood Pressure 120/63 03/25/25 03:26 Pulse Oximetry 95 03/25/25 03:26 Oxygen Delivery Method Room Air 03/25/25 03:26 Const General: cooperative, comfortable, No frail appearing and No ill appearing HENMT Head: normal to inspection Resp Effort & Inspection: normal respiratory effort Auscultation: clear to auscultation bilaterally Cardio Rate: regular rate Rhythm: regular rhythm Heart Sounds: S1 normal and S2 normal GI Palpation: soft and No tender Course Course Course Narrative: Patient seen and examined by myself. She had no active signs of a worsening PE. In fact, she had no actual symptoms or signs of a PE, even though she is known to have 1. She was already started on Eliquis at her previous ER visit. Does, it is unlikely that her DVT is worsening. The patient was reassured that since she is having no symptoms of a PE she is not in any present danger. The patient acknowledged this. I advised her to return to the ER for any signs or symptoms of a PE as outlined in her discharge paperwork. Patient was in agreement with this plan. Vital Signs Vital signs: Vital Signs - 8 hr 03/25/25 03:26 Temperature 98.5 F Pulse Rate 81 Respiratory Rate 16 Blood Pressure 120/63 Pulse Oximetry 95 Oxygen Delivery Method Room Air Discharge Plan Departure Patient Disposition: Home Clinical Impression: DVT (deep venous thrombosis) Qualifiers: DVT location: lower extremity Affected thrombotic vein of extremity: unspecified vein of extremity Chronicity: acute Laterality: left Qualified Code(s): I82.402 - Acute embolism and thrombosis of unspecified deep veins of left lower extremity Instructions: Deep Vein Thrombosis Activity Restrictions/Additional Instructions: If you have any change or worsening in your condition especially symptoms of a worsening pulmonary embolisms such as chest pain, palpitations, shortness of breath, lightheadedness, dizziness, coughing up blood then please return to the ER immediately for further evaluation. Otherwise, follow up with your primary care provider [facility] for re-evaluation. Prescriptions: No Action guaifenesin 1,200 mg tablet extended release 12hr 1,200 mg PO Q12H Qty: 30 0RF fluticasone propionate [Flonase Allergy Relief] 50 mcg/actuation spray,suspension 1 spray intranasal DAILY Qty: 16 0RF Rx Instructions: administer into each nostril hydrochlorothiazide 12.5 mg tablet 12.5 mg PO QAM PRN (Reason: increased leg swelling) Qty: 30 0RF liothyronine 25 mcg tablet 12.5 mcg PO DAILY Qty: 90 0RF Rx Instructions: if feeling hypothyroid, ok to use full tab 1-2 d/wk gabapentin 300 mg capsule 300 mg PO TID Qty: 90 1RF Rx Instructions: 1-2 TABS BY MOUTH TID.START AT BEDTIME AND TITRATE TO NERVE PAIN RELIEF Jardiance 25 mg tablet 25 mg PO QAM Qty: 90 0RF celecoxib 200 mg capsule 200 mg PO DAILY Qty: 90 1RF tramadol 50 mg tablet 50 mg PO TID PRN (Reason: pain) Qty: 60 1RF hybtibhcjp-qnafrtyox-seezrvhde 5-160-25 mg tablet See Rx Instructions .ROUTE .COMPLEX Qty: 90 0RF Dose Instruction: TAKE 1/2 TABLET BY MOUTH TO START, MONITOR HOME BLOOD PRESSURE AND IF IT IS GREATER THAN 140/90, INCREASE TO FULL DOSE Rx Instructions: TAKE 1/2 TABLET BY MOUTH DAILY TO START, MONITOR HOME BLOOD PRESSURE AND IF IT IS GREATER THAN 140/90, INCREASE TO FULL TAB pregabalin 75 mg capsule 75 mg PO BID semaglutide (weight loss) 1.7 mg/0.75 mL pen injector 1.7 mg SUBCUT QWEEK Qty: 3 2RF Disabled Parking Permit See Rx Instructions .ROUTE .COMPLEX Qty: 1 0RF Rx Instructions: I find this patient to be medically disabled and qualify for disabled parking as indicated and signed on the accompanying disabled parking application for individuals. (DME) Disabled Parking See Rx Instructions .Route .MEDSUPPLY Qty: 1 0RF Rx Instructions: I find this patient to be medically disabled and qualified for disabled parking as indicated and signed on the accompanying disabled parking application for individuals. apixaban 5 mg (74 tabs) tablets,dose pack See Rx Instructions .ROUTE .COMPLEX Qty: 74 0RF Rx Instructions: 10 mg by mouth twice a day for 7 days and then 5 mg by mouth twice a day epinephrine 0.3 mg/0.3 mL auto-injector 0.3 mg IM ONCE Estring 2 mg (7.5 mcg /24 hour) ring 1 vag ring vaginal [id number] levothyroxine [Synthroid] 137 mcg tablet 137 mcg PO DAILY Referrals: Mayda Rueda, [Primary Care Provider, Medical] - As soon as possible Stand Alone Forms: Patient Portal/API
== END 2025-03-25 04:08 | disposition home or self-care (01) ==
PROVIDERS: Emergency Provider Emergency Medicine; PCP Family Medicine
DX: I82.402 Acute embolism and thrombosis of unspecified deep veins of left lower extremity (principal)
CPT/HCPCS: 99281

== ENCOUNTER → 2025-04-04 09:17 | Outpatient (CLI) | payer MEDICARE, BC, SELFPAY ==
--- NOTE | 2025-04-04 09:20 | DI.RAD.S_ITS ---
PROCEDURE: XR HIP W PEL IF DONE BILAT two views each, 3 images total INDICATIONS: bilateral pain TECHNIQUE: To views of each hip, 3 images total were acquired. COMPARISON: [facility], DON, XR HIP W PEL IF DONE LT 2V, 02/20/2022, 9:41. FINDINGS: Moderate to severe degenerative changes bilateral hips with joint space narrowing, osteophytes, sclerotic changes, subchondral cysts, Kellgren Tyree grade 3-4 , progressed. Degenerative changes lumbar spine and sacroiliac joints mildly progressed. No radiographic evidence of displaced fracture, dislocation or high attenuation soft tissue foreign body. IMPRESSION: Degenerative changes as discussed above. Dictated by: Jimenez Krishna M.D. on 04/04/2025 at 21:15 Approved by: Jimenez Krishna M.D. on 04/04/2025 at 21:18
--- NOTE | 2025-04-04 09:20 | DI.RAD.S_ITS ---
PROCEDURE: XR LUMBAR SPINE 5V INDICATIONS: Low back pain and Bilateral Hip pain TECHNIQUE: 5 views of the lumbar spine were acquired, including bilateral oblique views. COMPARISON: X-ray lumbar spine [facility] 08/10/2020 FINDINGS: Frontal image demonstrates moderate levoscoliosis thoracolumbar junction and mild dextroscoliosis of the lumbar spine similar to the prior exam. Moderate to severe degenerative changes throughout the lumbar spine with disc space narrowing, osteophytes, facet osseous hypertrophic changes most notably at L2-3, L4-5 and L5-S1 mildly progressed. Straightening of the normal lumbar lordosis on the lateral image. Mild decreased height of the superior endplate of the L3 vertebral body unchanged otherwise vertebral body heights within normal limits. Mild vascular calcifications aorta and iliac vessels. Moderate to severe degenerative changes bilateral hips partially imaged. Oblique images: No gross radiographic evidence of pars defect. IMPRESSION: Moderate severe degenerative changes mildly progressed. Suspected chronic mild compression fracture superior endplate of L3 unchanged. If symptoms persist or worsen, or there is high clinical suspicion of lumbar abnormality, MRI could be performed. Dictated by: Jimenez Krishna M.D. on 04/04/2025 at 21:33 Approved by: Jimenez Krishna M.D. on 04/04/2025 at 21:37
== END ==
PROVIDERS: PCP Family Medicine; Referring Provider Physical Medicine & Rehabilitation; Visit Provider Physical Medicine & Rehabilitation
DX: M47.816 Spondylosis without myelopathy or radiculopathy, lumbar region (principal); M51.26 Other intervertebral disc displacement, lumbar region; M70.61 Trochanteric bursitis, right hip; M70.62 Trochanteric bursitis, left hip; I82.402 Acute embolism and thrombosis of unspecified deep veins of left lower extremity; I82.432 Acute embolism and thrombosis of left popliteal vein; M48.062 Spinal stenosis, lumbar region with neurogenic claudication; M41.20 Other idiopathic scoliosis, site unspecified
CPT/HCPCS: 72110; 73521; 99214

== ENCOUNTER → 2025-04-08 13:07 | Outpatient (CLI) | payer MEDICARE, BC, SELFPAY ==
--- NOTE | 2025-04-08 13:08 | DI.RAD.S_ITS ---
PROCEDURE: XR FINGER LT MIN 2V INDICATIONS: Laceration, trauma TECHNIQUE: AP hand, 3views of the 5th finger(s) acquired. COMPARISON: None. FINDINGS: Bones: No fractures or dislocations. Advanced polyarticular arthropathy includes the trapezium metacarpal, STT, radiocarpal, 1st metacarpophalangeal and all interphalangeal joints and is marked by joint space loss, marginal osteophytosis and subchondral sclerosis. No suspicious bony lesions. Soft tissues: No suspicious soft tissue calcifications. IMPRESSION: Polyarticular arthropathy as above without evidence of acute bony abnormality. Dictated by: Dat Medeiros M.D. on 04/09/2025 at 23:32 Approved by: Dat Medeiros M.D. on 04/09/2025 at 23:33
== END ==
PROVIDERS: PCP Family Medicine; Referring Provider Nurse Practitioner Family; Visit Provider Nurse Practitioner Family
DX: S61.219A Laceration without foreign body of unspecified finger without damage to nail, initial encounter (principal); M12.9 Arthropathy, unspecified
CPT/HCPCS: 73140

== ENCOUNTER → 2025-04-13 10:09 | Outpatient (CLI) | payer MEDICARE, BC, SELFPAY ==
[2025-04-13 11:26] LABS: Microalbumi Creatinin Ratio Ur 17.0 ug/mg CR (<30)
== END ==
PROVIDERS: PCP Family Medicine; Visit Provider Family Medicine
DX: N18.30 Chronic kidney disease, stage 3 unspecified (principal)
CPT/HCPCS: 82043; 82570

== ENCOUNTER → 2025-07-11 16:33 | Outpatient (CLI) | payer MEDICARE, BC, SELFPAY ==
[2025-07-11 18:12] LABS: Hemoglobin A1C% w Est Avg Glu 5.2 % (4.0-6.0)
[2025-07-11 18:37] LABS: Free T3, Triiodothyronine Free 4.04 pg/mL (2.77-5.27); Free T4, Direct Thyroxine 1.19 ng/dL (0.78-2.19)
[2025-07-11 18:51] LABS: TSH w/ Reflex to FT4 0.92 uIU/mL (0.47-4.68); Thyroid Stimulating Hormone 0.920 uIU/mL (0.47-4.68)
== END ==
PROVIDERS: PCP Family Medicine; Referring Provider Family Medicine; Visit Provider Family Medicine
DX: R73.03 Prediabetes (principal); E03.9 Hypothyroidism, unspecified; I10 Essential (primary) hypertension; Z51.81 Encounter for therapeutic drug level monitoring
CPT/HCPCS: 36415; 83036; 84439; 84443; 84481